=== PATIENT | male | born 1960 | race Caucasian/White ===

== ENCOUNTER 2016-10-13 11:06 | Inpatient (IN) | payer OTHER ==
--- NOTE | 2016-09-25 14:10 | PAT Medication Instructions ---
Service Date Sep 25, 2016. Current Home Medication List Amlodipine/Benazepril (Lotrel 5MG/20MG), 2 TAB PO QAM Amphetamine-Dextroamphetamine 20MG (Adderall 20MG), 20 MG PO QAM Desvenlafaxine Succinate Er (Pristiq), 50 MG PO QAM Glucosamine-Chondroitin (Glucosamine & Chondroitin 500-400 mg), 1 CAP PO QAM Multiple Vitamin (Multi Vitamin), 1 TAB PO QAM [Tumeric], Unknown Dose PO QAM Medication Instructions For Your Scheduled Surgery - Hold the following medications 10 days prior to surgery: Glucosamine-Chondroitin (Glucosamine & Chondroitin 500-400 mg), 1 CAP PO QAM Tumeric Unknown Dose PO QAM - Hold the following medications the morning of surgery: Multiple Vitamin (Multi Vitamin), 1 TAB PO QAM Amphetamine-Dextroamphetamine 20MG (Adderall 20MG), 20 MG PO QAM Amlodipine/Benazepril (Lotrel 5MG/20MG), 2 TAB PO QAM - Take the following medications the morning of surgery with a sip of water: Desvenlafaxine Succinate Er (Pristiq), 50 MG PO QAM If you have any questions please call us at [phone] or [phone] ( Christina) or [phone]
[2016-09-25 14:49] LABS: URINE APPEARANCE CLEAR (CLEAR); URINE BILIRUBIN NEG (NEG); URINE COLOR DK YELLOW; URINE NITRITE NEG (NEG); URINE PH 5.5 (4.5-7.5); URINE SPECIFIC GRAVITY 1.014 (1.000-1.030); UROBILINOGEN NEG (NEG)
[2016-09-25 14:55] LABS: MANUAL MICROSCOPIC REQUIRED? NO; REVIEW REQ? NO
--- NOTE | 2016-09-25 14:59 | DIAGNOSTIC IMAGING REPORT ---
CHEST PREADMISSION(PA/LAT) CLINICAL HISTORY: Preoperative evaluation COMPARISON STUDY: No previous studies for comparison. FINDINGS: Lung volumes are at the lower limits of normal. There is mild elevation/eventration of the right hemidiaphragm. Mild left basilar opacity is suggestive of atelectasis. There is no evidence of pulmonary edema. Cardiac size is normal. Mediastinal contours are normal. IMPRESSION: 1. No acute cardiopulmonary findings. 2. Mild elevation/eventration of the right hemidiaphragm. Electronically signed by: Cecilio Marie M.D. 09/25/2016 2:58 PM Dictated Date/Time: 09/25/2016 2:57 PM
[2016-09-25 15:00] LABS: INR 0.9 (0.9-1.1); PROTHROMBIN TIME (PATIENT) 9.7 SECONDS (9.0-12.0)
[2016-09-25 15:08] LABS: BASO % 0.5 %; BASO ABS # 0.03 K/uL (0-0.2); COMPLETE YES; EOS % 2.8 %; HEMATOCRIT 41.6 % (42-52); IG% 0.3 %; LYMPH ABS # 2.12 K/uL (1.2-3.4); MEAN CORPUSCULAR HEMOGLOBIN 30.4 pg (25-34); MEAN CORPUSCULAR HGB CONC 35.3 g/dl (32-36); MEAN PLATELET VOLUME 10.1 fL (7.4-10.4); MONO % 6.9 %; NEUT % 56.5 %; PLATELET COUNT 285 K/uL (130-400); RED BLOOD COUNT 4.84 M/uL (4.7-6.1); WHITE BLOOD COUNT 6.42 K/uL (4.8-10.8)
[2016-09-25 15:17] LABS: BUN/CREATININE RATIO 14.7 (10-20); CALCIUM 9.2 mg/dl (8.5-10.1); POTASSIUM 3.4 mmol/L (3.5-5.1)
[2016-09-26 07:04] LABS: ESTIMATED AVERAGE GLUCOSE 114 mg/dl; HA1C FLAG Normal (Normal)
--- NOTE | 2016-10-05 10:52 | HISTORY & PHYSICAL EXAMINATION ---
DATE OF ADMISSION: 10/13/2016 PREOPERATIVE HISTORY AND PHYSICAL SUBJECTIVE CHIEF COMPLAINT: Right knee pain. HISTORY OF PRESENT ILLNESS: The patient is a 56-year-old male who presents with right knee pain. He states that the symptoms are chronic and nontraumatic. Pain began with an unknown injury. The pain has been getting progressively worse overtime. He describes it as dull, discomforting and shooting at times 8/10 at its worst, is made worse by going upstairs, going down stairs and squatting. The patient has been treated with cortisone injections, Visco injections, nonsteroidal anti-inflammatories and physical therapy with no relief. The patient would like to pursue a right total knee arthroplasty. PAST MEDICAL HISTORY: Significant for hypertension, sleep apnea, anxiety, and osteoarthritis. PAST SURGICAL HISTORY: He had a left knee meniscectomy. SOCIAL HISTORY: He drinks alcohol occasionally. He denies smoking or tobacco use. He denies IV drug use. He lives in a 2-hiram house. He works as a business support assistant. FAMILY HISTORY: Father had an aortic aneurysm. MEDICATIONS: Amlodipine 5 mg twice a day, benazepril 20 mg twice a day, Pristiq 5 mg daily, Adderall 20 mg, multivitamin, chondroitin glucosamine ALLERGIES: WELLBUTRIN, SULFA DRUGS AND PENICILLIN. REVIEW OF SYSTEMS: He denies fevers, chills, headaches, weight loss, double vision, blurry vision, sore throat, hearing loss, tremors, dizziness, numbness or tingling, tired, thirsty, hot and cold intolerance, abdominal pain, nausea, vomiting, diarrhea, chest pain, swelling into the legs or feet, frequency, going to the bathroom, pain or burning with urination, wheezing, cough, shortness of breath, depression, thoughts to harm himself or harm others, nervousness or anxiousness. He is positive for joint pain, stiffness and swelling of the right knee. OBJECTIVE: GENERAL APPEARANCE: The patient is a 56-year-old male sitting in no acute distress, well dressed, well nourished. He is awake, alert and oriented x3. VITAL SIGNS: He is 6 feet 1 inch, 224 pounds; blood pressure is 126/82. HEENT: Extraocular movements are intact. PERRLA. Mucosa is moist. No septal deviation. NECK: Supple, no lymphadenopathy, no JVD, no thyromegaly. HEART: Regular rate and rhythm with no murmurs or gallops. LUNGS: Clear to auscultation with no wheezing or rhonchi. ABDOMEN: Soft, nontender, nondistended. Normal bowel sounds, no hepatosplenomegaly. EXTREMITIES: Paying particular attention to the patient's right knee. He is able to extend to 0 degrees actively and flex to 100 degrees actively. He has medial joint line tenderness. He has a negative Andrés's, negative anterior and negative posterior drawer. Negative valgus and varus stress test. IMAGING: Four views of the right knee shows [id number] of medial femoral condyle and osteophyte formation of femoral condyle and medial tibial plateau. IMPRESSION: Severe end-stage right knee osteoarthritis. PLAN: The patient is scheduled to have a right total knee arthroplasty. He has failed conservative therapies including cortisone injections, Visco injections, nonsteroidal anti-inflammatories and physical therapy. The patient notes that the knee pain causes a decreased the quality of life and he is unable to perform his activities of daily living. He wishes to proceed with a right total knee arthroplasty. Risks and benefits to surgery were included but not limited to blood clot, nerve damage, blood vessel damage, infection, failure to relieve all symptoms, revision surgeries and anesthesia risks were all discussed and the patient wishes to proceed. Questions were answered to his satisfaction. The patient would like to proceed home with self care after the surgical procedure. ELIZABETH
[2016-10-13] VITALS (7 sets, daily range): BP systolic 104–146; BP diastolic 56–94; PULSE 65–97; TEMP 36.3–36.8; O2SAT 91–96; Ht 185.4 cm; Wt 104.2 kg
[~2016-10-13] VITALS: Ht 185.4 cm; Wt 104.2 kg
[2016-10-13] MEDS: TRANEXAMIC ACID INJ 1,000 MG in SODIUM CHLORIDE 0.9% 100ML 100 ML IV SCH ×2 (06:30→13:37)
[~2016-10-13 11:06] MED LIST: ACETAMINOPHEN 500 MG TAB PO SCH; AMLO5CAP2 PO; AMPH20TA2 PO; BUPIVACAINE 0.5 % 5 MG/1 ML PF 10ML VIAL ONE; CEFAZOLIN 2000 MG/60 ML D5W 60 ML IV SCH; DESV50TA PO; DEXAMETHASONE 4 MG TAB PO SCH; FAMOTIDINE 20 MG TAB PO SCH; GABAPENTIN 300 MG CAP PO SCH; GLUC1CAP33 PO; LACTATED RINGER'S 1000ML 1,000 ML IV SCH; LACTATED RINGER'S 1000ML IV SCH; LACTATED RINGER'S 500 ML IV SCH; METOCLOPRAMIDE HCL 10 MG TAB PO SCH; MULT-1027 PO; ROPIVACAINE 5MG/ML 30 ML 150 MG, BUPIVACAINE/EPINEPHR 0.5% MPF 30 ML, KETOROLAC TROMETH... INFIL SCH; TRAMADOL HCL 50 MG TAB PO SCH; TUMERIC PO; VANCOMYCIN INJ 1,500 MG in SODIUM CHLORIDE 0.9% 500ML 500 ML IV SCH
[2016-10-13] MEDS ORDERED: ONDANSETRON INJ 2 MG/ML 2 ML VIAL ONE (11:49)
[2016-10-13] MEDS ORDERED: MIDAZOLAM HCL 1 MG/ML 2ML VIAL ONE (11:49)
[2016-10-13] MEDS ORDERED: PROPOFOL IV EMULSION 10 MG/ML 20 ML VIAL IV ONE ×2 (11:49→15:11)
[2016-10-13] MEDS ORDERED: FENTANYL CITRATE INJ 50 MCG/1 ML 2 ML VIAL ONE (11:49)
--- NOTE | 2016-10-13 12:11 | History & Physical Bridge Note ---
H&P Re-Evaluation Bridge Note: I have examined the patient, reviewed the History & Physical and in the interval since the performance of the History & Physical I have noted the following changes of clinical significance: No changes noted
[2016-10-13] MEDS ORDERED: ONDANSETRON INJ 2 MG/ML 2 ML VIAL IV PRN (12:30)
[2016-10-13] MEDS ORDERED: ATROPINE SULFATE 0.1 MG/ML 5ML SYR IV PRN (12:30)
[2016-10-13] MEDS ORDERED: FENTANYL CITRATE INJ 50 MCG/1 ML 2 ML VIAL IV PRN (12:30)
[2016-10-13] MEDS ORDERED: EpHEDrine SULFATE INJ 50 MG/ML AMP IV PRN (12:30)
[2016-10-13] MEDS ORDERED: ORTHO JOINT ANESTHETIC ONE (13:16)
[2016-10-13] MEDS ORDERED: POVIDONE-IODINE OP SOLN 30 ML BTL ONE (13:17)
[2016-10-13] MEDS ORDERED: BACITRACIN 50000 UNIT VIAL ONE (13:17)
[2016-10-13] MEDS ORDERED: EpHEDrine SULFATE 50MG/5ML SYR ONE (15:20)
--- NOTE | 2016-10-13 15:24 | [facility] Post Operative Brief Note ---
Immediate Operative Summary Operative Date Oct 13, 2016. Pre-Operative Diagnosis Severe end-stage osteoarthritis, right knee Post-Operative Diagnosis Severe end-stage osteoarthritis, right knee Procedure(s) Performed Right Total Knee Arthroplasty Surgeon Dr. Isaiah Beth Drafter Commercial Surgeon(s) Josue Portillo PA-C Estimated Blood Loss 20 Findings above Specimens Specimen A. Right knee bone and tissue Drains 2 hemovac Anesthesia spinal Complication(s) None Disposition Recovery Room / PACU
--- NOTE | 2016-10-13 15:52 | OPERATIVE REPORT ---
DATE OF OPERATION: 10/13/2016 PREOPERATIVE DIAGNOSIS: Right knee degenerative joint disease. POSTOPERATIVE DIAGNOSIS: Same. PROCEDURE: Right total knee arthroplasty. SURGEON: Dr. Beth. BRAKE DRUM LATHE OPERATOR: Josue Portillo PA-C who was necessary for assistance of procedure with positioning, prepping, draping, retraction and closure. ANESTHESIA: Spinal with adductor canal block. SPECIMEN: Bone and tissue. DRAINS: Two Hemovac. ESTIMATED BLOOD LOSS: 20 mL. COMPLICATIONS: None. IMPLANTS: Trejo \T\ Nephew Journey version 2 femur 8, tibia 6, poly 9, patella 41. INDICATIONS: The patient is a 56-year-old male with longstanding degenerative joint disease of the right knee. He has failed conservative measures including injection, anti-inflammatories and rehabilitation. Failing conservative measures, he wished to proceed with right total knee arthroplasty. Risks, benefits and alternatives to surgery including but not limited to infection, DVT, pain, stiffness, need for urgent surgery, failure to relieve all symptoms, damage to blood vessels, damage to nerves, risks of anesthesia were discussed with patient and he wished to necessary and he wished to proceed. OPERATION AND FINDINGS: PROCEDURE: The patient was identified, laterality was confirmed and marked. He received a preoperative antibiotic as well as a spinal anesthetic and an adductor canal block. A well-padded tourniquet was placed on the leg and limb was prepped and draped in usual sterile manner with ChloraPrep. Limb was exsanguinated and tourniquet was inflated. I made a longitudinal incision anterior aspect of the knee, sharply incising through the skin utilizing Bovie electrocautery to achieve hemostasis. I made a medial parapatellar arthrotomy, mobilized the patella laterally and used the Aquamantys to cauterize bleeders. I excised the anterior horns of the medial and lateral meniscus as well as the inferior patellar fat pad and then pinned in place the patient matched distal femoral cutting guide. I made my distal femoral resection, made my anterior, posterior and chamfer cuts. I then placed a patient matched tibial guide into place, made my tibial resection and resected the remaining portions of the menisci and cruciates. I then sized the tibia. We had preoperatively templated for a size 8 but we actually had the best fit with a size 6. We positioned the size [address] and checked alignment with the alignment ron and then pinned in place and cut for the post. I then used a lamina special trackwork blacksmith, removed posterior osteophytes off the femur and then placed the trial femoral component in place, reamed and cut for the trochlear component. I then placed a 9 mm poly. We had good range of motion, good soft tissue balancing with a 9 mm poly. I then prepared the patella with a free hand cut with a sagittal saw and sized and drilled for a size 41 patella. We had good tracking of the patella. No lateral release was needed. All trial components were removed. The wound was thoroughly irrigated. Deep tissues were anesthetized with an Orthomix solution, then with Simplex HV with gent cement. I cemented the definitive components. This was Trejo \T\ Nephew Journey version 2 femur 8, tibia 6, poly 9, patella 41 oval. Deep drain was placed after a Betadine soak was performed. Arthrotomy was closed with interrupted #1 Vicryl sutures, subcutaneous tissue with interrupted 2-0 Vicryl suture and skin with jose. Sterile dressing was applied. All needle and sponge counts were correct at the end of the procedure. The patient was transferred to the PACU in stable condition without apparent complication. I attest to the content of the Intraoperative Record and any orders documented therein. Any exceptio ns are noted below.
[2016-10-13] MEDS ORDERED: ALUMINUM/MAGNESIUM/SIMETH (MAALOX MAX) 30 ML UDC PO PRN (16:15)
[2016-10-13] MEDS ORDERED: ZOLPIDEM TARTRATE 5 MG TAB PO PRN (16:15)
[2016-10-13] MEDS ORDERED: BISACODYL 10 MG SUPP PR PRN (16:15)
[2016-10-13] MEDS ORDERED: MAGNESIUM HYDROXIDE SUSP 30 ML UDC PO PRN (16:15)
[2016-10-13] MEDS ORDERED: DiphenhydrAMINE HCL 50 MG/ML VIAL IV PRN (16:15)
[2016-10-13] MEDS ORDERED: MoRPHine SULFATE 2 MG/ML CARP IV PRN (16:15)
--- NOTE | 2016-10-13 16:43 | Anesthesiology Progress Note ---
Anesthesia Post Op Note Date & Time Oct 13, 2016 at 16:42 Vital Signs Pain Intensity: 0 Vital Signs Past 12 Hours Date Time Temp Pulse Resp B/P Pulse Ox O2 Delivery O2 Flow Rate FiO2 10/13/16 16:30 36.7 78 16 114/67 97 Nasal Cannula 3 10/13/16 16:20 65 16 111/74 97 Mask 5 10/13/16 16:10 79 16 114/74 97 Mask 10 10/13/16 16:08 36.8 70 16 107/67 97 Mask 10 10/13/16 11:34 36.8 65 20 146/94 96 Room Air Notes Mental Status: alert / awake / arousable, participated in evaluation Pt Amnestic to Procedure: Yes Nausea / Vomiting: adequately controlled Pain: adequately controlled Airway Patency, RR, SpO2: stable & adequate BP & HR: stable & adequate Hydration State: stable & adequate Neuraxial Anesthesia: was administered, sensory block is resolving Anesthetic Complications: no major complications apparent
--- NOTE | 2016-10-13 16:46 | DIAGNOSTIC IMAGING REPORT ---
RIGHT KNEE 1 OR 2 VIEWS ROUTINE CLINICAL HISTORY: Right knee arthroplasty. Postoperative evaluation. COMPARISON: None FINDINGS: Alignment of the total right knee arthroplasty is anatomic. There is no fracture or unexpected radiopaque foreign body. Drains and skin jose are present. IMPRESSION: Expected findings following total right knee arthroplasty. Electronically signed by: Cecilio Marie M.D. 10/13/2016 4:44 PM Dictated Date/Time: 10/13/2016 4:43 PM
[2016-10-13] MEDS: D5W AND 1/2NSS + 20MEQ KCL 1,000 ML IV SCH (19:09)
[2016-10-13] MEDS: OXYCODONE HCL IR 5 MG TAB (IMMEDIATE RELEASE) PO PRN (19:10)
[2016-10-13] MEDS ORDERED: MoRPHine SULFATE 4 MG/ML 1 ML CARP\\VIAL IV PRN (20:30)
[2016-10-13] MEDS ORDERED: MoRPHine SULFATE 10 MG/ML CARP/VIAL IV PRN (20:30)
[2016-10-13] MEDS: ASPIRIN 81 MG ECTAB PO SCH (21:19)
[2016-10-13] MEDS: SENNA 8.6 MG TAB PO SCH (21:20)
[2016-10-13] MEDS: DOCUSATE SODIUM 100 MG CAP PO SCH (21:20)
[2016-10-13] MEDS: OXYCODONE HCL 10 MG TABCR (OXYCONTIN) PO SCH (21:21)
[2016-10-13] MEDS: ACETAMINOPHEN 500 MG TAB PO SCH (21:22)
[2016-10-14] VITALS (8 sets, daily range): BP systolic 102–134; BP diastolic 62–84; PULSE 61–90; TEMP 35.5–36.7; O2SAT 90–98
[2016-10-14] MEDS ORDERED: VANCOMYCIN INJ 1,500 MG in SODIUM CHLORIDE 0.9% 500ML 500 ML IV SCH ×2
[2016-10-14 05:41] LABS: HEMATOCRIT 34.4 % (42-52); MEAN CELL VOLUME 86.4 fL (80-100); MEAN CORPUSCULAR HEMOGLOBIN 30.7 pg (25-34); MEAN CORPUSCULAR HGB CONC 35.5 g/dl (32-36); MEAN PLATELET VOLUME 10.2 fL (7.4-10.4); PLATELET COUNT 257 K/uL (130-400); RED BLOOD COUNT 3.98 M/uL (4.7-6.1); WHITE BLOOD COUNT 13.99 K/uL (4.8-10.8)
[2016-10-14] MEDS: D5W AND 1/2NSS + 20MEQ KCL 1,000 ML IV SCH ×2 (05:46→15:41)
[2016-10-14] MEDS: ACETAMINOPHEN 500 MG TAB PO SCH ×3 (05:47→20:56)
[2016-10-14 06:05] LABS: BUN/CREATININE RATIO 11.4 (10-20); CALCIUM 8.1 mg/dl (8.5-10.1); POTASSIUM 3.4 mmol/L (3.5-5.1)
--- NOTE | 2016-10-14 06:07 | Orthopedic Progress Note ---
Orthopedic Progress Note Date of Service Oct 14, 2016. Subjective Post OP Day: 1 Reports: feeling well, pain controlled w PO medications, Denies: SOB, calf pain , chest pain, complaints, light headedness, nausea / vomiting Objective calves soft nontender, N/V intact, capillary refill less than 2 sec., dressing C /D/I, A&O x3, toes mobile, hemovac drainage (690cc/ 8 hours) Date Time Temp Pulse Resp B/P Pulse Ox O2 Delivery O2 Flow Rate FiO2 10/14/16 03:30 36.6 69 16 102/62 90 Room Air 10/14/16 00:00 Room Air 10/13/16 22:54 36.5 76 15 104/56 91 Room Air 10/13/16 20:56 36.3 97 18 133/88 95 Room Air 10/13/16 18:43 36.4 85 18 127/86 94 Nasal Cannula 2.0 10/13/16 18:01 36.6 90 16 138/87 92 Nasal Cannula 2.0 10/13/16 17:20 36.6 76 16 130/85 92 Nasal Cannula 2.0 10/13/16 16:50 93 Nasal Cannula 2.0 10/13/16 16:50 94 Nasal Cannula 2.0 10/13/16 16:44 36.7 76 16 118/75 95 Nasal Cannula 3 10/13/16 16:30 36.7 78 16 114/67 97 Nasal Cannula 3 10/13/16 16:20 65 16 111/74 97 Mask 5 10/13/16 16:10 79 16 114/74 97 Mask 10 10/13/16 16:08 36.8 70 16 107/67 97 Mask 10 10/13/16 11:34 36.8 65 20 146/94 96 Room Air Laboratory Results 24 Hours: Test 10/14/16 05:00 Hematocrit 34.4 % Hemoglobin 12.2 g/dL Assessment & Plan Assessment: POD #1 s/p Right TKA -PT/OT -dvt proph DARCI/ASA/SCD -plan for OPPT when stable @ [facility] in [place]. hypertension, sleep apnea, anxiety, Discharge Planning Discharge Planning: home with oppt DVT Prophylaxis: TEDs, SCDs, ASA Therapy: Physical Therapy
--- NOTE | 2016-10-14 06:11 | Discharge Instructions ---
Discharge Instructions Admission Reason for Admission: Right Knee Djd Discharge Discharge Diagnosis / Problem: Right TKA Discharge Goals Goal(s): Decrease discomfort, Improve function, Increase independence Activity Recommendations Activity Limitations: as noted below Weightbearing Status: Right weightbearing (as tolerated) . Instructions / Follow-Up Instructions / Follow-Up ACTIVITY RECOMMENDATIONS: SELF CARE INSTRUCTIONS AFTER TOTAL KNEE REPLACEMENT A. You may need to continue a physical therapy program after discharge from the hospital. There are several options available to you. Your doctor will assist you in selecting the best one for you. 1. An out-patient facility 2 to 3 times a week for therapy or home therapy. 2. Continue working on all exercises taught to you in the hospital. Your goals should be to increase bending of your knee to 90 degrees and beyond and to fully straighten your knee. B. You may progress at your own pace from walking with a walker or crutches to a cane; then to no assistive devices. C. Make walking a part of your daily routine. Be up as much as comfortable with rest periods throughout the day. Rest with leg elevation is very important. Use the ice wrap frequently for the first 3-4 weeks. D. There are no restrictions on activities. You may ride in a car, shop, participate in dry kiln operator and all social activities. E. Wear the long elastic stockings (DARCI hose) 20 hours a day for 2 weeks after surgery. They can be removed several times a day for laundering and for a bath. F. You may shower, no tub baths until cleared by your doctor. SPECIAL CARE INSTRUCTIONS: VERY IMPORTANT TO READ AND REVIEW A. There are a few signs you need to watch for after you are home. Call [facility] if you notice any of the followin. Increased severe knee pain. Some pain is expected especially when you exercise. 2. Increased swelling in your leg or knee; pain or swelling of the calf muscle in either lower leg. 3. Any fluid drainage from the incision. 4. Shortness of breath or chest pain. B. Please call [facility] at if you have any concerns or questions about your operation or recovery. The doctor or his nurse will return your call promptly. C. You must take antibiotics before dental work, bladder, bowel or other surgery. Your doctor will provide you with a permanent care to carry describing this precaution. IMPORTANT: * REMEMBER TO TAKE ASPIRIN, 81 MG, TWICE DAILY FOR 4 WEEKS UNLESS OTHERWISE DIRECTED. THIS IS YOUR BLOOD THINNER. * HIGH RISK PATIENTS MAY BE PRESCRIBED A STRONGER BLOOD THINNER. THIS WILL BE PROVIDED AT DISCHARGE. * CALL IF INCREASED PAIN, REDNESS, DRAINAGE OR FEVER GREATER THAT 101. * WEAR DARCI HOSE 20 HOURS PER DAY FOR 2 WEEKS. * YOU MAY HAVE A LARGE BAND-AID LIKE DRESSING (SILVERON). THIS WILL REMAIN ON YOUR INCISION FOR 7 DAYS, THEN CAN BE REMOVED. IF INCISION IS LEAKING THROUGH DRESSING, CALL THE OFFICE . FOLLOW UP VISIT: If appointment is not already scheduled: Please call [facility] to make a follow-up appointment for 2 weeks after your surgery at . Current Hospital Diet Patient's current hospital diet: Regular Diet Discharge Diet Recommended Diet: Regular Diet Procedures Procedures Performed: Right Total Knee Arthroplasty Pending Studies Studies pending at discharge: no Laboratory Results Hemoglobin A1c Test 09/25/16 14:17 Range/Units Estimated Average Glucose 114 mg/dl Hemoglobin A1c 5.6 4.5-5.6 % Medical Emergencies . Who to Call and When: Medical Emergencies: If at any time you feel your situation is an emergency, please call 911 immediately. . Non-Emergent Contact Non-Emergency issues call your: Primary Care Provider, Surgeon . "Provider Documentation" section prepared by Terry Gee. VTE Core Measure Inpt VTE Proph given/why not?: Other Anticoagulation (ASA 81mg po bid x 1 month), T.E.D. Stockings, SCD's [place] Drug Monitoring Program Search Results: patient reviewed within database, no issues identified
[2016-10-14] MEDS ORDERED: RXC5 PO (06:14)
[2016-10-14] MEDS ORDERED: OXYSR10 PO (06:14)
[2016-10-14] MEDS ORDERED: ACET-1138 PO (06:14)
[2016-10-14] MEDS ORDERED: ASPEC81 PO (06:14)
[2016-10-14] MEDS ORDERED: ONDA8TAB6 PO (06:14)
[2016-10-14] MEDS ORDERED: CLC100 PO (06:14)
[2016-10-14] MEDS: ONDANSETRON INJ 2 MG/ML 2 ML VIAL IV PRN ×4 (08:51→19:13)
[2016-10-14] MEDS: OXYCODONE HCL IR 5 MG TAB (IMMEDIATE RELEASE) PO PRN ×2 (08:53→10:48)
[2016-10-14] MEDS: AMPHETAMINE ASP/SULF/DEXTRAMPH 20 MG TAB PO SCH ×3 (08:54→09:16)
[2016-10-14] MEDS: PANTOprazole SOD 40 MG TAB PO SCH ×2 (08:54→11:03)
[2016-10-14] MEDS: ASPIRIN 81 MG ECTAB PO SCH ×2 (08:54→11:01)
[2016-10-14] MEDS: OXYCODONE HCL 10 MG TABCR (OXYCONTIN) PO SCH ×4 (08:54→21:00)
[2016-10-14] MEDS: MULTIVITAMIN TAB PO SCH (08:54)
[2016-10-14] MEDS: BENAZEPRIL HCL 10 MG TAB PO SCH ×3 (08:56→11:01)
[2016-10-14] MEDS: DOCUSATE SODIUM 100 MG CAP PO SCH ×2 (08:56→20:56)
[2016-10-14] MEDS: FERROUS GLUCONATE 324 MG TAB PO SCH ×3 (08:56→17:45)
[2016-10-14] MEDS: AMLODIPINE BESYLATE 5 MG TAB PO SCH ×3 (08:57→11:02)
[2016-10-14] MEDS: DESVENLAFAXINE SUCCINATE 50 MG PO SCH (08:57)
[2016-10-14] MEDS ORDERED: DESVENLAFAXINE SUCCINATE 50 MG PO SCH (09:00)
[2016-10-14] MEDS: SENNA 8.6 MG TAB PO SCH (20:56)
[2016-10-15] MEDS: ACETAMINOPHEN 500 MG TAB PO SCH (06:03)
--- NOTE | 2016-10-15 06:11 | Orthopedic Progress Note ---
Orthopedic Progress Note Date of Service Oct 15, 2016. Subjective Post OP Day: 2 Reports: feeling well, nausea / vomiting (has improved since yesterday), pain controlled w PO medications, Denies: SOB, calf pain, chest pain, complaints, light headedness Objective calves soft nontender, N/V intact, capillary refill less than 2 sec., dressing C /D/I, A&O x3, toes mobile Date Time Temp Pulse Resp B/P Pulse Ox O2 Delivery O2 Flow Rate FiO2 10/14/16 23:05 Room Air 10/14/16 22:50 36.6 61 16 107/62 92 Room Air 10/14/16 16:00 94 Room Air 10/14/16 15:36 36.7 90 18 134/76 94 Room Air 10/14/16 11:50 36.5 72 18 128/76 96 Room Air 10/14/16 10:54 83 98 10/14/16 08:09 95 Room Air 10/14/16 07:56 36.6 86 18 122/80 95 Room Air Assessment & Plan Assessment: POD #2 s/p Right TKA -PT/OT -dvt proph DARCI/ASA/SCD -plan for OPPT when stable @ [facility] in [place]. hypertension, sleep apnea, anxiety, Discharge Planning Discharge Planning: home with oppt DVT Prophylaxis: TEDs, SCDs, ASA Therapy: Physical Therapy
[2016-10-15 06:37] VITALS: BP 145/72; PULSE 70; TEMP 36.8; O2SAT 93
[2016-10-15] MEDS: DOCUSATE SODIUM 100 MG CAP PO SCH (07:22)
[2016-10-15] MEDS: FERROUS GLUCONATE 324 MG TAB PO SCH (07:22)
[2016-10-15] MEDS: AMPHETAMINE ASP/SULF/DEXTRAMPH 20 MG TAB PO SCH (07:22)
[2016-10-15] MEDS: MULTIVITAMIN TAB PO SCH (07:22)
[2016-10-15] MEDS: ASPIRIN 81 MG ECTAB PO SCH (07:22)
[2016-10-15] MEDS: PANTOprazole SOD 40 MG TAB PO SCH (07:23)
[2016-10-15] MEDS: DESVENLAFAXINE SUCCINATE 50 MG PO SCH (07:23)
[2016-10-15 08:57] VITALS: BP 112/72; PULSE 74; O2SAT 97
[2016-10-15] MEDS: AMLODIPINE BESYLATE 5 MG TAB PO SCH (09:06)
[2016-10-15] MEDS: OXYCODONE HCL 10 MG TABCR (OXYCONTIN) PO SCH (09:07)
[2016-10-15] MEDS: BENAZEPRIL HCL 10 MG TAB PO SCH (09:07)
[2016-10-15 09:09] VITALS: BP 120/74; PULSE 75
[2016-10-15 09:41] VITALS: BP 120/74; PULSE 75; TEMP 36.8; O2SAT 97
--- NOTE | 2016-10-18 14:20 | DISCHARGE SUMMARY ---
ADMISSION DIAGNOSIS: Right knee osteoarthritis. DISCHARGE DIAGNOSIS: Status post right TKA. CONSULTS: None. PROCEDURES: On 10/13/2016 the patient had a right TKA performed. HISTORY OF PRESENT ILLNESS: Patient is a 56-year-old male who presents with right knee pain. He states that the symptoms are chronic and nontraumatic. The pain began with an unknown injury. The pain has been getting progressively worse over time. He describes it as dull, discomforting, and shooting at times, 8/10 at its worst. It is worse going up stairs, going down stairs, and squatting. The patient has been treated with cortisone injections, visco injections, nonsteroidal antiinflammatories and physical therapy with no relief. He would like to proceed with a right TKA. HOSPITAL COURSE: Postop day 1 the patient was feeling well. Pain was controlled with p.o. medications. He denied shortness of breath, chest pain, lightheadedness, dizziness, nausea or vomiting. His Hemovac drainage was 690 cc per 8 hours. The patient's plan for discharge when stable was to go home with self-care. Postop day 2 the patient was feeling well. Pain was controlled with p.o. medications. He denied shortness of breath, chest pain, lightheadedness or dizziness. DISCHARGE CONDITION: Stable. DISPOSITION: Home with self-care. MEDICATIONS: Acetaminophen 1000 mg by mouth every 8 hours, aspirin 81 mg by mouth twice daily for 30 days, docusate 100 mg by mouth twice a day for 10 days, Zofran 8 mg by mouth every 8 hours as needed for nausea, OxyContin 10 mg by mouth every 12 hours, oxycodone 5-10 mg by mouth every 4 hours as needed for pain, Lotrel 5 mg/20 mg two tablets by mouth daily in the morning, Adderall 20 mg by mouth daily in the morning, Pristiq 50 mg by mouth daily in the morning, multivitamin one tablet daily in the morning. INSTRUCTIONS: The patient is allowed to be right lower extremity weightbearing as tolerated. He is allowed to be on a regular diet. He is to start physical therapy at an outpatient facility 2-3 times a week. He is to wear long elastic stockings 20 hours a day for two weeks after surgery. No showering no tubs, no baths until cleared by doctor. He is to take aspirin 81 mg twice a day for 4 weeks. He is to call [facility] if he notices any increasing knee pain, swelling, drainage from the incision site, shortness of breath or chest pain. He is to followup with Dr. Beth or his physician call center assistant in 2 weeks after the surgery. ELIZABETH
== END 2016-10-15 11:18 | disposition home or self-care (01) | DRG 470 ==
LOC: ENRESERVTM → ENRESERVDT → C.ACU 11:06 → C.3E 16:05
PROVIDERS: ADMIT Orthopaedic Surgery; ATTEND Orthopaedic Surgery
PROC: 0SRC0J9 Replacement of Right Knee Joint with Synthetic Substitute, Cemented, Open Approach (ICD-10-PCS; principal; 2016-10-13 13:45)
DX: M17.11 Unilateral primary osteoarthritis, right knee (principal); I10 Essential (primary) hypertension; N40.0 Benign prostatic hyperplasia without lower urinary tract symptoms; F41.9 Anxiety disorder, unspecified; F32.9 Major depressive disorder, single episode, unspecified; F90.0 Attention-deficit hyperactivity disorder, predominantly inattentive type; G47.30 Sleep apnea, unspecified; E66.9 Obesity, unspecified; Z68.30 Body mass index [BMI] 30.0-30.9, adult; Z99.89 Dependence on other enabling machines and devices; Z79.899 Other long term (current) drug therapy

== ENCOUNTER → 2016-10-19 | Outpatient (CLI) | payer OTHER ==
[~2016-10-19] MED LIST changes: +ACET-1138 PO; -ACETAMINOPHEN 500 MG TAB PO SCH; +ASPEC81 PO; -BUPIVACAINE 0.5 % 5 MG/1 ML PF 10ML VIAL ONE; -CEFAZOLIN 2000 MG/60 ML D5W 60 ML IV SCH; +CLC100 PO; +DAPT500I IV; -DEXAMETHASONE 4 MG TAB PO SCH; -FAMOTIDINE 20 MG TAB PO SCH; -GABAPENTIN 300 MG CAP PO SCH; -GLUC1CAP33 PO; -LACTATED RINGER'S 1000ML 1,000 ML IV SCH; -LACTATED RINGER'S 1000ML IV SCH; -LACTATED RINGER'S 500 ML IV SCH; -METOCLOPRAMIDE HCL 10 MG TAB PO SCH; +MRPSR15 PO; +ONDA8TAB6 PO; +OXYSR10 PO; -ROPIVACAINE 5MG/ML 30 ML 150 MG, BUPIVACAINE/EPINEPHR 0.5% MPF 30 ML, KETOROLAC TROMETH... INFIL SCH; +RXC5 PO; -TRAMADOL HCL 50 MG TAB PO SCH; -TUMERIC PO; -VANCOMYCIN INJ 1,500 MG in SODIUM CHLORIDE 0.9% 500ML 500 ML IV SCH
--- NOTE | 2016-10-19 15:56 | DIAGNOSTIC IMAGING REPORT ---
CHEST 2 VIEWS ROUTINE CLINICAL HISTORY: Fever. Recent surgery. COMPARISON STUDY: 09/25/2016 FINDINGS: The cardiac and mediastinal contours remain stable. There is no focal pulmonary consolidation. There is no failure. There are no pleural effusions.[ IMPRESSION: No active disease in the chest. Electronically signed by: Federico Car M.D. 10/19/2016 3:54 PM Dictated Date/Time: 10/19/2016 3:54 PM
--- NOTE | 2016-10-19 16:14 | DIAGNOSTIC IMAGING REPORT ---
RIGHT LOWER EXTREMITY VENOUS DOPPLER CLINICAL HISTORY: Right leg pain and swelling. Total knee arthroplasty. COMPARISON STUDY: No previous studies for comparison. TECHNIQUE: Sonography of the deep venous system of the right lower extremity was performed. Compression and augmentation were evaluated. FINDINGS: The right common femoral, superficial femoral and popliteal veins were compressible. Augmentation was normal. Flow was shown within the deep calf vessels. IMPRESSION: No evidence of deep venous thrombus within the right lower extremity. Electronically signed by: Cecilio Marie M.D. 10/19/2016 4:13 PM Dictated Date/Time: 10/19/2016 4:12 PM
[2016-10-19 16:41] LABS: HEMATOCRIT 31.9 % (42-52); MEAN CELL VOLUME 85.1 fL (80-100); MEAN CORPUSCULAR HEMOGLOBIN 30.4 pg (25-34); MEAN CORPUSCULAR HGB CONC 35.7 g/dl (32-36); MEAN PLATELET VOLUME 9.8 fL (7.4-10.4); PLATELET COUNT 366 K/uL (130-400); RED BLOOD COUNT 3.75 M/uL (4.7-6.1); WHITE BLOOD COUNT 11.01 K/uL (4.8-10.8)
== END | disposition home or self-care (01) ==
LOC: C.ULTR 15:18
PROVIDERS: ATTEND Orthopaedic Surgery
DX: M17.11 Unilateral primary osteoarthritis, right knee (principal)

== ENCOUNTER 2016-10-24 13:09 | Inpatient (IN) | payer OTHER ==
[~2016-10-24] VITALS: Ht 185.4 cm; Wt 102.0 kg
[~2016-10-24 13:09] MED LIST changes: -DAPT500I IV; -MRPSR15 PO
--- NOTE | 2016-10-24 13:34 | HISTORY & PHYSICAL EXAMINATION ---
DATE OF ADMISSION: 10/24/2016 CHIEF COMPLAINT: Right knee pain, swelling, fever. HISTORY OF PRESENT ILLNESS: The patient is a 56-year-old male who underwent a right total knee arthroplasty on 10/13/2016. Starting the following week after surgery, he had increasing pain and swelling and some low grade fevers. Examination of the knee wound at that time was relatively benign. At that time Doppler was obtained which was normal. Chest x-ray was normal. White blood cell count was only mildly elevated at 11. He was placed on doxycycline. He continued to have pain and swelling in the knee. He continues to now have temperatures. He was reevaluated again today. He has some increased erythema along the incision line consistent with cellulitis. Aspiration was obtained which demonstrated serosanguineous fluid. He has an ALLERGY TO BOTH PENICILLIN WELL SULFA. Given his lack of response to the p.o. antibiotics, elected to bring him in for IV antibiotics for treatment of cellulitis. PAST MEDICAL HISTORY: Hypertension, sleep apnea, anxiety, osteoarthritis. PAST SURGICAL HISTORY: Left knee meniscectomy and right total knee arthroplasty. SOCIAL HISTORY: Denies smoking, alcohol or drug use. FAMILY HISTORY: Father had an aortic aneurysm. MEDICATIONS: Amlodipine, benazepril, Pristiq, Adderall, glucosamine. ALLERGIES: WELLBUTRIN, SULFA, PENICILLIN. REVIEW OF SYSTEMS: Positive for fevers. PHYSICAL EXAMINATION: GENERAL APPEARANCE: Alert and oriented x3 in no acute distress. Mood and affect are normal. HEENT: Atraumatic. CHEST: Clear. CARDIOVASCULAR: Regular rhythm. ABDOMEN: Soft and nontender. EXTREMITIES: Examination of the right lower extremity. All anterior incision closed with jose. No drainage. There is some surrounding erythema along the incision line. Moderate effusion. Range of motion 0-50 degrees of flexion. ASSESSMENT: Right knee status post total knee arthroplasty and cellulitis. PLAN: Given his persistent complaints of fevers and lack of response to the p.o. antibiotics I aspirated the knee. This returned back serosanguineous type fluid. He does have some surrounding cellulitis in the incision site. Ideally, I would have liked to put him on some Bactrim, but HE IS ALLERGIC TO SULFA MEDICATIONS. I am going to bring him into the hospital for treatment of IV antibiotics. We will wait for the analysis of the fluid that was aspirated to ensure that there is no infection in that. I am also going to consult infectious disease for recommendations for what would be a good p.o. antibiotics to send him home on given his failure to doxycycline and his ALLERGIES TO PENICILLIN AND SULFA. I am going to keep him n.p.o. this afternoon in case the Gram stain comes back positive, but assuming this does not come back positive, I will allow him to eat later this evening.
[2016-10-24 13:52] VITALS: BP 155/80; PULSE 88; TEMP 37.1; O2SAT 93; Ht 185.4 cm; Wt 102.0 kg
[2016-10-24] MEDS ORDERED: ENALAPRIL MALEATE 10 MG TAB PO SCH (14:00)
[2016-10-24] MEDS ORDERED: AMLODIPINE BESYLATE 5 MG TAB PO SCH (14:00)
[2016-10-24] MEDS ORDERED: ONDANSETRON INJ 2 MG/ML 2 ML VIAL IV PRN (14:15)
[2016-10-24 14:55] LABS: HEMATOCRIT 30.3 % (42-52); MEAN CELL VOLUME 86.1 fL (80-100); MEAN CORPUSCULAR HEMOGLOBIN 30.4 pg (25-34); MEAN CORPUSCULAR HGB CONC 35.3 g/dl (32-36); MEAN PLATELET VOLUME 8.3 fL (7.4-10.4); PLATELET COUNT 505 K/uL (130-400); RED BLOOD COUNT 3.52 M/uL (4.7-6.1); WHITE BLOOD COUNT 9.43 K/uL (4.8-10.8)
--- NOTE | 2016-10-24 15:11 | Progress Note ---
Progress Note Date of Service Oct 24, 2016. Progress Note ID Consult Dictated #[id number] A/P: 1. Infected right knee -continue vanco, add imipenem, await aspirate fluid -Will likely need course IV abx -Will follow, thank you
[2016-10-24 15:16] VITALS: BP 144/81; PULSE 88; TEMP 37.2; O2SAT 93
[2016-10-24 15:22] LABS: C-REACTIVE PROTEIN 13.3 mg/dl (0-0.29)
--- NOTE | 2016-10-24 15:54 | INFECT. DISEASE CONSULTATION ---
DATE OF CONSULTATION: 10/24/2016 DATE OF CONSULTATION: 10/24/2016. REQUESTING PHYSICIAN: Dr. Beth. HISTORY OF PRESENT ILLNESS: This is a 56-year-old gentleman who underwent a right knee replacement on 10/13/2016. He states that he was feeling well up until time of discharge. He noticed immediately after discharge he was having fevers and chills at home with a T-max of 101.5. He did follow and had a workup for pneumonia and DVT which both were unremarkable. He continued to have pain in the knee and fevers and chills at home. He was seen by his orthopedic surgeon last week and placed empirically on doxycycline. He has not noticed any improvement and in fact had worsening redness and swelling over the weekend. He was again evaluated for this and was sent to the hospital for admission and IV antibiotics. He has been placed on vancomycin. He did undergo an aspiration and he states 80 mL of fluid were removed. He describes this as bloody. He has had continued fevers and chills at home. He is able to ambulate but has some difficulty secondary to pain. He did notice increased swelling over the weekend. He denies any drainage or dehiscence of the wound. He denies any chest pain, cough, shortness of breath, nausea, vomiting, diarrhea or abdominal pain. He was tolerating doxycycline well. All remaining review of systems are reviewed and are negative except or as noted above. An aspiration was done, results are pending and if there is suggestion of deep infection he may in fact undergo operation later this evening. PAST MEDICAL HISTORY: Significant for hypertension, sleep apnea, anxiety, and arthritis. PAST SURGICAL HISTORY: Significant for left knee meniscus repair and right total knee replacement in late September. SOCIAL HISTORY: Negative for tobacco, alcohol use or drug use. He is . He lives with his and 2 children. He denies any sick contacts. His is present during my exam. FAMILY HISTORY: Noncontributory. ALLERGIES: INCLUDE WELLBUTRIN, SULFA AND PENICILLIN. CURRENT MEDICATIONS: Include Zofran, Pristiq, Roxicodone, Norvasc, Vasotec, oxycodone, and vancomycin. PHYSICAL EXAMINATION: VITAL SIGNS: He is afebrile, pulse 88, respiratory rate is 16, blood pressure is 155/80, oxygen saturation is 93% on room air. GENERAL: He is awake, alert and oriented x3. She is in no acute distress. HEAD, EYES, EARS, NOSE, AND THROAT: Mucous membranes are moist. Extraocular muscles are intact. HEART: Regular. There is no murmur. LUNGS: Clear bilaterally. ABDOMEN: Soft, nontender, nondistended. EXTREMITIES: There is no lower extremity edema. Examination of knee reveals significant erythema, warmth and swelling. There is no tenderness to light palpation. [place] are intact. There is no bleeding or purulent drainage. LABORATORY STUDIES: CBC today reveals a white blood cell count of 9.4, hemoglobin 10.7, platelets are 505. Sed rate is pending. CRP is pending. A joint aspiration is pending. Cultures are pending. Chest x-ray was most recently done on 10/19/2016 and was unremarkable for any acute abnormality. Lower extremity ultrasound was done at that time and again was negative for DVT. ASSESSMENT AND PLAN: Infected prosthetic joint. At this time, he will be continued on vancomycin. Cefepime will be added empirically pending results of his aspiration and culture. We will follow along with you. Thank you for this consultation.
[2016-10-24] MEDS ORDERED: VANCOMYCIN CONSULT ACTIVE PRN (16:00)
[2016-10-24] MEDS: D5W AND 1/2NSS + 20MEQ KCL 1000 ML IV SCH (16:11)
--- NOTE | 2016-10-24 16:31 | Pharmacy Progress Note ---
Pharmacy Antibiotic Consult Date of Service: Oct 24, 2016. Pharmacy Dosing Scope Pharmacy is consulted to initiate Vanco IV dosing therapy, order appropriate labs and adjust drug dose/frequency. Subjective The patient is a 56 year old male admitted on Oct 24, 2016 at 13:29. Objective Height (Feet): 6 Height (Inches): 1.00 Weight (Kilograms): 102.000 Lab Results (24hrs): Laboratory Tests Test 10/24/16 14:39 White Blood Count 9.43 K/uL Micro Results: Item Value Date Time Gram Stain Received 10/24/16 1222 Joint Fluid/Space (Synovial) Knee Right Pending Assessment & Plan Pt is being treated for cellulitis. Pt failed outpt Doxy. WBC are currently WNL , Pt is afebrile. Renal fxn is currently pending in the computer; however, I have dosed Mr. Sharma off of his renal fxn from 10/14/16. Vanco * Set to receive one time Vanco 2600mg (25mg/kg) at 1645 * then Vanco 1500mg (15mg/kg) Q10 set to start 0000 on 10/25/16 * Vanco trough ordered for 10/26/16 prior to the 4th MD dose. Pharmacy will continue to follow and will adjust dose/frequency as necessary. Thank you
[2016-10-24] MEDS ORDERED: VANCOMYCIN INJ 2,600 MG in SODIUM CHLORIDE 0.9% 500ML 500 ML IV ONE (16:45)
[2016-10-24 16:54] LABS: SYNOVIAL FLUID APPEARANCE BLOODY; SYNOVIAL FLUID COLOR RED
[2016-10-24 17:11] LABS: CREATININE 0.91 mg/dl (0.60-1.40)
[2016-10-24] MEDS ORDERED: NURSING VERBAL MED ORDER ONE (17:45)
[2016-10-24] MEDS: OXYCODONE HCL IR 5 MG TAB (IMMEDIATE RELEASE) PO PRN ×2 (17:55→20:49)
[2016-10-24] MEDS: IMIPENEM/CILASTATIN IV 500 MG in DEXTROSE 5% 100ML 100 ML IV SCH ×2 (18:48→23:36)
[2016-10-24] MEDS: ENALAPRIL MALEATE 10 MG TAB PO SCH ×2 (20:48→20:51)
[2016-10-24] MEDS: OXYCODONE HCL 10 MG TABCR (OXYCONTIN) PO SCH (20:49)
[2016-10-24] MEDS: AMLODIPINE BESYLATE 5 MG TAB PO SCH ×2 (20:49→20:51)
[2016-10-24 23:10] VITALS: BP 117/70; PULSE 97; TEMP 37.4; O2SAT 91
[2016-10-25] MEDS: MoRPHine SULFATE 2 MG/ML CARP IV PRN ×3 (04:01→10:36)
[2016-10-25] MEDS: VANCOMYCIN INJ 1,500 MG in SODIUM CHLORIDE 0.9% 500ML 500 ML IV SCH ×3 (04:20→23:58)
[2016-10-25] MEDS: D5W AND 1/2NSS + 20MEQ KCL 1000 ML IV SCH ×2 (04:21→18:44)
[2016-10-25 05:20] VITALS: BP 115/66; PULSE 93; TEMP 37.1; O2SAT 93
[2016-10-25] MEDS: IMIPENEM/CILASTATIN IV 500 MG in DEXTROSE 5% 100ML 100 ML IV SCH ×4 (05:28→23:58)
[2016-10-25 06:49] VITALS: BP 146/71; PULSE 81; TEMP 36.9; O2SAT 93
[2016-10-25 06:50] LABS: CREATININE 0.73 mg/dl (0.60-1.40)
[2016-10-25] MEDS: AMPHETAMINE ASP/SULF/DEXTRAMPH 10 MG TAB PO SCH (09:00)
[2016-10-25] MEDS: ENALAPRIL MALEATE 10 MG TAB PO SCH ×2 (09:12→21:02)
[2016-10-25] MEDS: OXYCODONE HCL 10 MG TABCR (OXYCONTIN) PO SCH (09:12)
[2016-10-25] MEDS: AMLODIPINE BESYLATE 5 MG TAB PO SCH ×2 (09:12→21:05)
[2016-10-25] MEDS: DESVENLAFAXINE SUCCINATE 50 MG TABCR PO SCH (09:21)
--- NOTE | 2016-10-25 10:45 | Progress Note ---
Subjective Date of Service: Oct 25, 2016. Subjective pt remains on emperic abx, tolerating well. afebrile since admission, esr and crp elevated, aspiration with 12,819 wbc 98%N. culture pending. Objective Vital Signs Date Time Temp Pulse Resp B/P Pulse Ox O2 Delivery O2 Flow Rate FiO2 10/25/16 06:49 36.9 81 20 146/71 93 Room Air 10/24/16 23:35 Room Air 10/24/16 23:10 37.4 97 16 117/70 91 Room Air 10/24/16 15:50 Room Air 10/24/16 15:16 37.2 88 17 144/81 93 Room Air 10/24/16 13:52 37.1 88 16 155/80 93 Room Air Laboratory Results Item Value Date Time Gram Stain - Final Resulted 10/24/16 1222 Joint Fluid/Space (Synovial) Knee Right Last 24 Hours Test 10/24/16 12:22 10/24/16 14:39 10/25/16 06:05 Synovial Fluid Source KNEE Synovial Fluid Color RED Synovial Fluid Appearance BLOODY Synovial Fluid WBC 47022 /uL Synovial Fluid RBC 39818 /uL Synovial Fluid Polynuclear WBCs % 98.0 % Synovial Fluid Mononuclear WBCs % 2.0 % White Blood Count 9.43 K/uL Red Blood Count 3.52 M/uL Hemoglobin 10.7 g/dL Hematocrit 30.3 % Mean Corpuscular Volume 86.1 fL Mean Corpuscular Hemoglobin 30.4 pg Mean Corpuscular Hemoglobin Concent 35.3 g/dl RDW Standard Deviation 41.4 fL RDW Coefficient of Variation 13.1 % Platelet Count 505 K/uL Mean Platelet Volume 8.3 fL Erythrocyte Sedimentation Rate 35 mm/hr Creatinine 0.91 mg/dl 0.73 mg/dl Est Creatinine Clear Calc Drug Dose 112.4 ml/min 140.1 ml/min Estimated GFR () 108.0 119.3 Estimated GFR (Non- 93.2 103.0 C-Reactive Protein 13.30 mg/dl Assessment and Plan (1) Post op infection Assessment & Plan: continue abx, follow culture result, ? OR.
--- NOTE | 2016-10-25 13:45 | Orthopedic Progress Note ---
Orthopedic Progress Note Date of Service Oct 25, 2016. Subjective Additional Notes: Pt lying in bed. States his knee hurts and that he's due for another Morphine shot. States that the knee looks less red today and is not as hot. No other complaints. Objective calves soft nontender, N/V intact, incision C/D/I, A&O x3, toes mobile Mild area of erythema noted on the lateral aspect of the incision. No drainage. Knee swollen. Had the knee flexed intially to approx 80 deg. Able to extend the knee but is somewhat painful in doing so. States that it "takes a few minutes to get it going". When taking his knee through range of motion, he does not have severe pain by any means. Date Time Temp Pulse Resp B/P Pulse Ox O2 Delivery O2 Flow Rate FiO2 10/25/16 06:49 36.9 81 20 146/71 93 Room Air 10/24/16 23:35 Room Air 10/24/16 23:10 37.4 97 16 117/70 91 Room Air 10/24/16 15:50 Room Air 10/24/16 15:16 37.2 88 17 144/81 93 Room Air 10/24/16 13:52 37.1 88 16 155/80 93 Room Air Laboratory Results 24 Hours: Test 10/24/16 14:39 Hematocrit 30.3 % Hemoglobin 10.7 g/dL Additional Notes: RUN DATE: 10/25/16 [facility] LAB PAGE 1 RUN TIME: 1252 Specimen Inquiry PATIENT: SAMANTA CORTEZ LOC: [facility] U # : [id number] AGE/SX: 56/M ROOM: W355 REG : 10/24/[address]: Isaiah Beth M.D. : 1960 BED: 2 DIS : STATUS: ADM IN TLOC: SPEC #: [id number] GORGE: 10/24/16-1221 STATUS: RES REQ #: [id number] RECD: 10/24/[address]: Isaiah Beth M.D. SOURCE: JOINT FLSP ENTR: 10/24/16 [facility] DR: SPDESMariela: KNEE RIGHT ORDERED: JNT FL/SP CU/SM Procedure Result Verified Site GRAM STAIN Final 10/25/16 RESULT MANY POLYS NO ORGANISMS SEEN JOINT FLUID/SPACE CULTURE Preliminary 10/25/16 NO GROWTH TO DATE. ----- Assessment & Plan Assessment: Likely Cellulitis Right Knee s/p TKA almost 2 weeks out. Plan: Discussed plan with Dr Beth this AM. If Gram stain neg for organisms, will hold off surgery today. Follow Cx's for now: antibx as per ID Team Some improvement noted by patient Will add his oral pain meds and let him eat. (1) Post op infection Inhouse Planning Pain Management: Morphine, Oxy IR DVT Prophylaxis: TEDs, SCDs
[2016-10-25] MEDS: MoRPHine SULFATE CR 15 MG TAB (MS CONTIN) PO SCH (13:59)
[2016-10-25] MEDS: OXYCODONE HCL IR 5 MG TAB (IMMEDIATE RELEASE) PO PRN ×4 (14:06→23:17)
[2016-10-25 19:34] VITALS: O2SAT 95
[2016-10-25 19:48] VITALS: BP 146/88; PULSE 89; TEMP 37.3; O2SAT 95
[2016-10-25 23:09] VITALS: BP 144/84; PULSE 94; TEMP 37.1; O2SAT 92
[2016-10-26] MEDS: MoRPHine SULFATE CR 15 MG TAB (MS CONTIN) PO SCH ×2 (01:53→13:57)
[2016-10-26] MEDS: OXYCODONE HCL IR 5 MG TAB (IMMEDIATE RELEASE) PO PRN ×5 (01:54→20:16)
[2016-10-26] MEDS ORDERED: VANCOMYCIN TROUGH ONE ×2 (05:30→09:30)
[2016-10-26] MEDS: IMIPENEM/CILASTATIN IV 500 MG in DEXTROSE 5% 100ML 100 ML IV SCH ×4 (05:47→23:49)
[2016-10-26 06:27] LABS: BASO % 0.3 %; BASO ABS # 0.03 K/uL (0-0.2); COMPLETE YES; EOS % 3.3 %; IG% 0.2 %; LYMPH % 17.8 %; LYMPH ABS # 1.68 K/uL (1.2-3.4); MEAN CELL VOLUME 86.2 fL (80-100); MEAN CORPUSCULAR HEMOGLOBIN 29.6 pg (25-34); MEAN CORPUSCULAR HGB CONC 34.3 g/dl (32-36); MEAN PLATELET VOLUME 8.4 fL (7.4-10.4); MONO % 9.6 %; NEUT % 68.8 %; PLATELET COUNT 524 K/uL (130-400); RED BLOOD COUNT 3.48 M/uL (4.7-6.1); WHITE BLOOD COUNT 9.45 K/uL (4.8-10.8)
--- NOTE | 2016-10-26 06:29 | Orthopedic Progress Note ---
Orthopedic Progress Note Date of Service Oct 26, 2016. Subjective Post OP Day: 2 Reports: complaints (difficulty extending his knee all the way without pain), feeling well, pain controlled w PO medications, Denies: SOB, calf pain, chest pain, light headedness, nausea / vomiting Additional Notes: Patient states he is feeling a little better. He does not notice if he is running a fever much anymore. He states his knee "does not look as red anymore. " Objective calves soft nontender, N/V intact, capillary refill less than 2 sec., incision C /D/I, A&O x3, toes mobile Patient was able to flex knee to 90 degrees, extend 10 degrees short of full extension. He did not seem like he was in severe pain upon examination. Skin was warm and erythema was on the lateral portion of the incision. Incision was C/D/I. Date Time Temp Pulse Resp B/P Pulse Ox O2 Delivery O2 Flow Rate FiO2 10/25/16 23:09 37.1 94 18 144/84 92 Room Air 10/25/16 19:48 37.3 89 20 146/88 95 Room Air 10/25/16 19:34 95 Room Air 10/25/16 07:20 Room Air 10/25/16 06:49 36.9 81 20 146/71 93 Room Air Laboratory Results 24 Hours: Test 10/26/16 06:00 Assessment & Plan Assessment: Likely Cellulitis Right Knee s/p TKA almost 2 weeks out. Plan: Patient scheduled for washout on 10/27/16. Cultures are still pending but Preliminary shows no growth as of now, Labs are pending this morning. Follow Cx's for now: antibx as per ID Team Some improvement noted by patient (1) Post op infection Assessment & Plan: continue abx, follow culture result, OR for washout on Inhouse Planning Pain Management: Morphine, Oxy IR DVT Prophylaxis: TEDs, SCDs
[2016-10-26 06:58] LABS: CREATININE 0.83 mg/dl (0.60-1.40)
[2016-10-26 07:25] VITALS: BP 129/73; PULSE 89; TEMP 37; O2SAT 94
[2016-10-26] MEDS: D5W AND 1/2NSS + 20MEQ KCL 1000 ML IV SCH ×2 (08:27→20:17)
[2016-10-26] MEDS: DESVENLAFAXINE SUCCINATE 50 MG TABCR PO SCH (08:32)
[2016-10-26] MEDS: AMLODIPINE BESYLATE 5 MG TAB PO SCH ×2 (08:32→20:28)
[2016-10-26] MEDS: ENALAPRIL MALEATE 10 MG TAB PO SCH ×2 (08:33→20:29)
[2016-10-26] MEDS: AMPHETAMINE ASP/SULF/DEXTRAMPH 10 MG TAB PO SCH (08:34)
--- NOTE | 2016-10-26 10:06 | Progress Note ---
Subjective Date of Service: Oct 26, 2016. Subjective Pt evaluation today including: conversation w/ patient, physical exam, chart review, lab review pt seen in followup, tolerating abx. no fevers since admission, still with pain , asking for change in meds. ambulating to bathroom without difficulty, feels swelling more today, no drainage. no diarrhea. eating well. for OR in am. aspirate culture ngtd. Objective Vital Signs Date Time Temp Pulse Resp B/P Pulse Ox O2 Delivery O2 Flow Rate FiO2 10/26/16 07:25 37.0 89 18 129/73 94 Room Air 10/25/16 23:09 37.1 94 18 144/84 92 Room Air 10/25/16 19:48 37.3 89 20 146/88 95 Room Air 10/25/16 19:34 95 Room Air Physical Exam General Appearance: WD/WN, no apparent distress Eyes: EOMI Neck: supple Respiratory/Chest: lungs clear, normal breath sounds, no respiratory distress Cardiovascular: regular rate, rhythm, no edema Abdomen: soft Extremities: non-tender, normal inspection, no pedal edema Neurologic/Psychiatric: alert, oriented x 3 Skin: normal color Comments: knee staple intact, no drainage or bleeding, still with edema, warmth and erythema. tender to palpation Laboratory Results Item Value Date Time Gram Stain - Final Resulted 10/24/16 1222 Joint Fluid/Space (Synovial) Knee Right Last 24 Hours Test 10/26/16 06:00 10/26/16 09:17 White Blood Count 9.45 K/uL Red Blood Count 3.48 M/uL Hemoglobin 10.3 g/dL Hematocrit 30.0 % Mean Corpuscular Volume 86.2 fL Mean Corpuscular Hemoglobin 29.6 pg Mean Corpuscular Hemoglobin Concent 34.3 g/dl Platelet Count 524 K/uL Mean Platelet Volume 8.4 fL Neutrophils (%) (Auto) 68.8 % Lymphocytes (%) (Auto) 17.8 % Monocytes (%) (Auto) 9.6 % Eosinophils (%) (Auto) 3.3 % Basophils (%) (Auto) 0.3 % Neutrophils # (Auto) 6.50 K/uL Lymphocytes # (Auto) 1.68 K/uL Monocytes # (Auto) 0.91 K/uL Eosinophils # (Auto) 0.31 K/uL Basophils # (Auto) 0.03 K/uL RDW Standard Deviation 41.7 fL RDW Coefficient of Variation 13.1 % Immature Granulocyte % (Auto) 0.2 % Immature Granulocyte # (Auto) 0.02 K/uL Creatinine 0.83 mg/dl Est Creatinine Clear Calc Drug Dose 123.2 ml/min Estimated GFR () 113.2 Estimated GFR (Non- 97.7 Assessment and Plan (1) Post op infection Assessment & Plan: continue abx and follow cultures. for OR in am. await findings.
[2016-10-26] MEDS: VANCOMYCIN INJ 1,500 MG in SODIUM CHLORIDE 0.9% 500ML 500 ML IV SCH (10:16)
[2016-10-26] MEDS ORDERED: KETOROLAC TROMETHAMINE 30 MG/ML VIAL IV PRN (12:00)
--- NOTE | 2016-10-26 12:52 | Pharmacy Progress Note ---
Pharmacy Antibiotic Prog Note Date of Service: Oct 26, 2016. Subjective: The patient is currently receiving Vancomycin 1,500mg IV every 10 hours + Primaxin 500mg IV every 6 hrs. The patient is currently on day # 3 of abx IV therapy. Objective: Height (Feet): 6 Height (Inches): 1.00 Weight (Kilograms): 102.000 Levels: Item Value Date Time Vancomycin Level Trough 14.0 mcg/ml 10/26/16 0917 Lab Results (24hrs): Laboratory Tests Test 10/26/16 06:00 Creatinine 0.83 mg/dl White Blood Count 9.45 K/uL Red Blood Count 3.48 M/uL Hemoglobin 10.3 g/dL Hematocrit 30.0 % Mean Corpuscular Volume 86.2 fL Mean Corpuscular Hemoglobin 29.6 pg Mean Corpuscular Hemoglobin Concent 34.3 g/dl Platelet Count 524 K/uL Mean Platelet Volume 8.4 fL Neutrophils (%) (Auto) 68.8 % Lymphocytes (%) (Auto) 17.8 % Monocytes (%) (Auto) 9.6 % Eosinophils (%) (Auto) 3.3 % Basophils (%) (Auto) 0.3 % Neutrophils # (Auto) 6.50 K/uL Lymphocytes # (Auto) 1.68 K/uL Monocytes # (Auto) 0.91 K/uL Eosinophils # (Auto) 0.31 K/uL Basophils # (Auto) 0.03 K/uL Micro Results: Item Value Date Time Gram Stain - Final No growth to date 10/24/16 1222 Joint Fluid/Space (Synovial) Knee Right Assessment & Plan: 56yo male receiving IV Vanco + Primaxin for post-op knee infection. Pt afebrile since admission. Joint Fluid/Space (Synovial) Knee Right cultures are negative to date. Pt to go to OR tomorrow AM for washout. Renal function stable. Vancomycin likely at steady state at this point. Vancomycin: * Trough level today is: Slightly subtherapeutic at 14mcg/ml for deep knee infection. * Increase dose to Vancomycin 1,650mg IV every 10 hours. * Goal trough level estimate: between 15 - 20 mcg/mL * Will re-order repeat trough level for 10/28. Primaxin: * Pt w/o history of MDRO * Cultures negative to date * Most likely chosen d/t penicillin & sulfa allergy. * Please consider de-escalating when appropriate. Pharmacy will continue to follow and will adjust dose/frequency as necessary. Thank you
[2016-10-26 15:36] VITALS: BP 169/81; PULSE 93; TEMP 37; O2SAT 96
[2016-10-26 16:00] VITALS: O2SAT 96
[2016-10-26] MEDS ORDERED: NURSING VERBAL MED ORDER ONE (20:00)
[2016-10-26] MEDS: VANCOMYCIN INJ 1,650 MG in SODIUM CHLORIDE 0.9% 500ML 500 ML IV SCH (20:16)
[2016-10-26 20:20] VITALS: BP 141/70; PULSE 85; O2SAT 97
[2016-10-26 22:59] VITALS: BP 118/71; PULSE 79; TEMP 37.1; O2SAT 91
[2016-10-27] VITALS (9 sets, daily range): BP systolic 120–146; BP diastolic 65–82; PULSE 80–107; TEMP 36.7–36.9; O2SAT 91–96
[2016-10-27] MEDS: MoRPHine SULFATE CR 15 MG TAB (MS CONTIN) PO SCH ×2 (01:41→13:29)
[2016-10-27] MEDS: VANCOMYCIN INJ 1,650 MG in SODIUM CHLORIDE 0.9% 500ML 500 ML IV SCH ×2 (05:19→17:30)
[2016-10-27] MEDS: IMIPENEM/CILASTATIN IV 500 MG in DEXTROSE 5% 100ML 100 ML IV SCH ×4 (05:19→23:13)
[2016-10-27 07:01] LABS: CREATININE 0.72 mg/dl (0.60-1.40)
[2016-10-27] MEDS: OXYCODONE HCL IR 5 MG TAB (IMMEDIATE RELEASE) PO PRN (07:50)
[2016-10-27] MEDS: D5W AND 1/2NSS + 20MEQ KCL 1000 ML IV SCH ×2 (10:09→23:13)
[2016-10-27] MEDS: AMLODIPINE BESYLATE 5 MG TAB PO SCH ×2 (10:10→20:29)
[2016-10-27] MEDS: DESVENLAFAXINE SUCCINATE 50 MG TABCR PO SCH (10:10)
[2016-10-27] MEDS: ENALAPRIL MALEATE 10 MG TAB PO SCH ×2 (10:10→20:30)
--- NOTE | 2016-10-27 10:10 | Progress Note ---
Subjective Date of Service: Oct 27, 2016. Subjective pt sleeping, for wash out and poly exchange later today. tolerating abx. wound culture negative. was on doxy lighter captain. afebrile. no new labs. Objective Vital Signs Date Time Temp Pulse Resp B/P Pulse Ox O2 Delivery O2 Flow Rate FiO2 10/27/16 08:50 93 Room Air 10/27/16 08:02 36.9 80 16 128/70 93 Room Air 10/27/16 07:55 Room Air 10/26/16 23:45 Room Air 10/26/16 22:59 37.1 79 18 118/71 91 Room Air 10/26/16 20:20 85 141/70 97 Room Air 10/26/16 16:00 96 Room Air 10/26/16 15:36 37.0 93 16 169/81 96 Room Air 10/26/16 11:00 Room Air Physical Exam General Appearance: WD/WN, no apparent distress Neck: supple Respiratory/Chest: normal breath sounds, no respiratory distress Skin: normal color Laboratory Results Item Value Date Time Gram Stain - Final Complete 10/24/16 1222 Joint Fluid/Space (Synovial) Knee Right Last 24 Hours Test 10/27/16 06:17 Creatinine 0.72 mg/dl Est Creatinine Clear Calc Drug Dose 142.1 ml/min Estimated GFR () 120.0 Estimated GFR (Non- 103.6 Assessment and Plan (1) Post op infection Assessment & Plan: continue abx for now. await or findings, please send deep cultures. suspect he will need prolonged course of abx, culture from aspirate is negative but pt was on doxy lighter captain, this may account for negative culture. If OR cultures and aspirate culture remain negative, would suggest 6 weeks IV emperic Dapto 6mg/kg, (vanco as alternative if insurance coverage mandates) with weekly cbc,chem 12, esr, cpk. will need picc line, spoke with case management, suspect he will be inpt through weekend. will need ID follow up post d/c as well.
[2016-10-27] MEDS: AMPHETAMINE ASP/SULF/DEXTRAMPH 10 MG TAB PO SCH (10:12)
[2016-10-27] MEDS ORDERED: BACITRACIN 50000 UNIT VIAL ONE (11:20)
[2016-10-27] MEDS ORDERED: MIDAZOLAM HCL 1 MG/ML 2ML VIAL ONE (12:03)
[2016-10-27] MEDS ORDERED: FENTANYL CITRATE INJ 50 MCG/1 ML 2 ML VIAL ONE ×5 (12:03→13:50)
[2016-10-27] MEDS ORDERED: POVIDONE-IODINE OP SOLN 30 ML BTL ONE (12:13)
[2016-10-27] MEDS ORDERED: HYDROmorphone INJ 2 MG/ML SYR/VIAL ONE (12:43)
[2016-10-27] MEDS ORDERED: LIDOCAINE HCL 2% 2 ML VIAL (20MG/ML) ONE (12:46)
[2016-10-27] MEDS ORDERED: PROPOFOL IV EMULSION 10 MG/ML 20 ML VIAL IV ONE (12:46)
[2016-10-27] MEDS ORDERED: RANITIDINE HCL 25 MG/ML INJ ONE (12:46)
[2016-10-27] MEDS ORDERED: ONDANSETRON INJ 2 MG/ML 2 ML VIAL ONE (12:46)
[2016-10-27] MEDS ORDERED: DEXAMETHASONE SOD INJ 4 MG/ML VIAL ONE (12:46)
[2016-10-27] MEDS ORDERED: METOCLOPRAMIDE HCL INJ 5 MG/ML 2 ML VIAL ONE (12:46)
[2016-10-27] MEDS ORDERED: NURSING VERBAL MED ORDER ONE (13:15)
[2016-10-27] MEDS ORDERED: TRANEXAMIC ACID AMP 1,000 MG in NSS 100ML IV SCH (13:30)
--- NOTE | 2016-10-27 14:10 | [facility] Post Operative Brief Note ---
Immediate Operative Summary Operative Date Oct 27, 2016. Pre-Operative Diagnosis Right Knee Status Post Total Knee Arthroplasty and Cellulitis Post-Operative Diagnosis Right Knee Status Post Total Knee Arthroplasty and Cellulitis Procedure(s) Performed Right Knee Irrigation and Debridement and Poly Exchange Surgeon Dr. Beth Plant Operations Engineer Surgeon(s) none Estimated Blood Loss 20 ml Findings pocket of fluid laterally and in pre-patellar bursa, questionable looking fibrinous material within the joint and deep to the poly post Specimens Culture #1--Pre-Patellar Bursa--for STAT gram stain, routine culture and sensitivity, aerobes and anaerobes Culture #2--Right Knee Lateral Gutter--for STAT gram stain, routine culture and sensitivity, aerobes and anaerobes Culture #3--Deep Right Knee Tissue--for STAT gram stain, routine culture and sensitivity, aerobes and anaerobes Culture #4--Right Knee Synovium--for STAT gram stain, routine culture and sensitivity, aerobes and anaerobes --All cultures sent to lab at 1302 A. Removed Hardware Right Knee (Poly) Drains 2 hemovac Anesthesia geta Complication(s) None Disposition Recovery Room / PACU
[2016-10-27] MEDS ORDERED: ATROPINE SULFATE 0.1 MG/ML 5ML SYR IV PRN (14:15)
[2016-10-27] MEDS ORDERED: ALUMINUM/MAGNESIUM/SIMETH (MAALOX MAX) 30 ML UDC PO PRN (14:15)
[2016-10-27] MEDS ORDERED: KETOROLAC TROMETHAMINE 30 MG/ML VIAL IV. PRN (14:15)
[2016-10-27] MEDS ORDERED: FLUMAZENIL 0.1 MG/1 ML 10 ML VIAL IV PRN (14:15)
[2016-10-27] MEDS ORDERED: HYDROmorphone INJ 1 MG/ML SYR IV PRN (14:15)
[2016-10-27] MEDS ORDERED: NALOXONE HCL 0.4 MG/1 ML VIAL/CARP IV PRN (14:15)
[2016-10-27] MEDS ORDERED: METOCLOPRAMIDE HCL INJ 5 MG/ML 2 ML VIAL IV PRN (14:15)
[2016-10-27] MEDS ORDERED: EpHEDrine SULFATE INJ 50 MG/ML AMP IV PRN (14:15)
[2016-10-27] MEDS ORDERED: LABETALOL HCL IV 5 MG/ML 20ML IV PRN (14:15)
[2016-10-27] MEDS ORDERED: ONDANSETRON INJ 2 MG/ML 2 ML VIAL IV PRN ×2 (14:15)
[2016-10-27] MEDS ORDERED: PROMETHAZINE HCL INJ 12.5 MG in SODIUM CHLORIDE 0.9% 50ML 50 ML IV PRN (14:15)
[2016-10-27] MEDS ORDERED: MAGNESIUM HYDROXIDE SUSP 30 ML UDC PO PRN (14:15)
--- NOTE | 2016-10-27 14:47 | DIAGNOSTIC IMAGING REPORT ---
RIGHT KNEE 1 OR 2 VIEWS ROUTINE CLINICAL HISTORY: AP/LATERAL IN PACU RIGHT KNEE Right joint replacement COMPARISON: 10/13/2016 DISCUSSION: Total joint replacement with good contact between prosthetic and underlying bone. Surgical drains are in position. Expected soft tissue postoperative change IMPRESSION: Anatomic alignment status post total right knee replacement Electronically signed by: Terry Fong M.D. 10/27/2016 2:46 PM Dictated Date/Time: 10/27/2016 2:44 PM
--- NOTE | 2016-10-27 15:08 | Anesthesiology Progress Note ---
Anesthesia Post Op Note Date & Time Oct 27, 2016 at 15:08 Vital Signs Pain Intensity: 3 Vital Signs Past 12 Hours Date Time Temp Pulse Resp B/P Pulse Ox O2 Delivery O2 Flow Rate FiO2 10/27/16 14:55 37.0 88 14 144/90 97 Nasal Cannula 3 10/27/16 14:45 90 15 129/82 97 Nasal Cannula 3 10/27/16 14:35 84 15 123/82 100 Mask 10 10/27/16 14:25 91 17 140/77 95 Mask 10 10/27/16 14:18 36.6 88 14 102/62 93 Mask 10 10/27/16 08:50 93 Room Air 10/27/16 08:02 36.9 80 16 128/70 93 Room Air 10/27/16 07:55 Room Air Notes Mental Status: alert / awake / arousable, participated in evaluation Pt Amnestic to Procedure: Yes Nausea / Vomiting: adequately controlled Pain: adequately controlled Airway Patency, RR, SpO2: stable & adequate BP & HR: stable & adequate Hydration State: stable & adequate Anesthetic Complications: no major complications apparent
--- NOTE | 2016-10-27 16:10 | OPERATIVE REPORT ---
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 POSTOPERATIVE DIAGNOSIS: Same. PROCEDURE: Right knee irrigation and debridement and polyethylene exchange. SURGEON: Dr. Beth. CARDIAC REHAB NURSE: Josue Portillo PA-C who was necessary for assistance of procedure with positioning, prepping, draping, retraction and closure. ANESTHESIA: General endotracheal anesthesia. SPECIMENS: Multiple cultures, both superficial as well as deep. IMPLANTS: New 6 x 9 mm polyethylene liner for Trejo \T\ Nephew Journey version 2. DRAINS: Two Hemovac. ESTIMATED BLOOD LOSS: 20 mL. COMPLICATIONS: None. INDICATIONS: This patient is a 56-year-old male, who approximately 2 weeks ago underwent a right total knee arthroplasty. In his postoperative period, he had a fair amount of bloody drainage out of this Hemovac. This resolved and he was discharged to home. The following week he developed increasing fevers. He had an examination of the wound and the knee was initially relatively benign. Chest x-ray was negative. Ultrasound was negative for DVT. He was placed on oral doxycycline. He continued to have persistent pain and fevers. Aspiration was performed, which was mainly just serosanguineous fluid. Gram stain was negative. Cultures were negative. He had increasing erythema along the incision site as well as laterally. He had some slight improvement with IV antibiotics, but had persistent pain as well as swelling and erythema in the knee. The cultures from his aspiration were negative, but with his persistent pain and the fevers he had been having, which resolved after being started on IV antibiotics were suspicious for deep infection. We elected to proceed with irrigation and debridement and polyethylene exchange. Risks, benefits, and alternatives of surgery including but not limited to infection, DVT, pain, stiffness, need for urgent surgery persistent of the infection, need for later removal of the implants, damage to blood vessels, damage to nerves, risks of anesthesia were discussed with the patient and he wished to proceed. DESCRIPTION OF PROCEDURE: The patient was identified, laterality was confirmed and marked. He received a preoperative antibiotic, which he had been receiving on the floor. He had been receiving both vancomycin as well as imipenem. A well-padded tourniquet was placed on the leg. Limb was then prepped and draped using sterile manner with ChloraPrep. Limb was exsanguinated and tourniquet was inflated. We reopened his previous surgical incision. I encountered a fair amount of fluid in the prepatellar bursa that was cultured. I then removed the Vicryl sutures and subcutaneous tissues. There is a questionable pocket of fluid and material distally along the lateral aspect of the region of the patellar tendon. This was a separate set of cultures. I then removed the deep Vicryl sutures to the joint and encountered serosanguineous type fluid, but it looked a bit cloudy. This fluid was cultured as well and there was also some fibrinous material, particularly essentially near the polyethylene post was concerning for infection that was sent for tissue culture as well. We performed a thorough irrigation and debridement sharply down to the level of bone. I also utilized the Versajet to debride the soft tissues and synovium both superficially as well as deep. The debridement utilized a combination of a knife, Bovie and rongeur. Then thoroughly irrigated the wound with 2 bags of bacitracin impregnated fluid with a Pulsavac after removing the previous 9 mm poly. Once the irrigation and debridement were performed, we placed clean drapes as well as changed our gloves. We trialed a 9 mm poly and again the 9 mm poly had a good fit, good soft tissue balance and good range of motion. I removed the trial component and then put a definitive 6.9 mm polyethylene liner into position. A deep drain was placed, this was 2 medium Hemovacs. The arthrotomy was then closed with interrupted #1 Vicryl sutures, subcutaneous tissues with interrupted 2-0 Vicryl suture and skin with jose. A Prevena wound VAC was placed. All needle and sponge counts were correct at the end of the procedure. The patient was transferred to the PACU in stable condition without apparent complication. Due to the suspicious nature of the material, plan will be for placement of a PICC line and 4-6 weeks of IV antibiotics. I attest to the content of the Intraoperative Record and any orders documented therein. Any exceptio ns are noted below.
[2016-10-27] MEDS: FERROUS GLUCONATE 324 MG TAB PO SCH (18:34)
[2016-10-27] MEDS: ASPIRIN 81 MG ECTAB PO SCH (20:30)
[2016-10-28] VITALS (8 sets, daily range): BP systolic 127–137; BP diastolic 74–81; PULSE 78–88; TEMP 36.8–37.1; O2SAT 91–94
[2016-10-28] MEDS: MoRPHine SULFATE CR 15 MG TAB (MS CONTIN) PO SCH ×2 (01:05→13:57)
[2016-10-28] MEDS ORDERED: VANCOMYCIN TROUGH ONE ×2 (01:30→03:30)
[2016-10-28] MEDS: OXYCODONE HCL IR 5 MG TAB (IMMEDIATE RELEASE) PO PRN ×4 (02:47→22:17)
[2016-10-28 03:29] LABS: HEMATOCRIT 26.7 % (42-52); MEAN CORPUSCULAR HEMOGLOBIN 29.3 pg (25-34); MEAN CORPUSCULAR HGB CONC 34.5 g/dl (32-36); MEAN PLATELET VOLUME 8.6 fL (7.4-10.4); PLATELET COUNT 555 K/uL (130-400); RED BLOOD COUNT 3.14 M/uL (4.7-6.1); WHITE BLOOD COUNT 10.02 K/uL (4.8-10.8)
[2016-10-28 03:45] LABS: BUN/CREATININE RATIO 12.9 (10-20); CALCIUM 7.7 mg/dl (8.5-10.1); CREATININE 0.88 mg/dl (0.60-1.40); POTASSIUM 3.3 mmol/L (3.5-5.1)
[2016-10-28] MEDS: VANCOMYCIN INJ 1,650 MG in SODIUM CHLORIDE 0.9% 500ML 500 ML IV SCH (04:03)
[2016-10-28] MEDS: IMIPENEM/CILASTATIN IV 500 MG in DEXTROSE 5% 100ML 100 ML IV SCH ×4 (05:58→23:35)
[2016-10-28] MEDS: AMPHETAMINE ASP/SULF/DEXTRAMPH 10 MG TAB PO SCH (09:00)
[2016-10-28] MEDS: FERROUS GLUCONATE 324 MG TAB PO SCH ×3 (09:16→17:36)
[2016-10-28] MEDS: MULTIVITAMIN TAB PO SCH (09:17)
[2016-10-28] MEDS: AMLODIPINE BESYLATE 5 MG TAB PO SCH ×2 (09:17→20:33)
[2016-10-28] MEDS: PANTOprazole SOD 40 MG TAB PO SCH (09:17)
[2016-10-28] MEDS: ASPIRIN 81 MG ECTAB PO SCH ×2 (09:18→20:34)
[2016-10-28] MEDS: ENALAPRIL MALEATE 10 MG TAB PO SCH ×2 (09:18→20:34)
[2016-10-28] MEDS: DESVENLAFAXINE SUCCINATE 50 MG TABCR PO SCH (09:19)
--- NOTE | 2016-10-28 09:36 | Pharmacy Progress Note ---
Pharmacy Antibiotic Prog Note Date of Service: Oct 28, 2016. Subjective: The patient is currently receiving vancomycin 1650 mg iv q 10 hrs for knee infection The patient is currently on day # 5 of IV therapy. Objective: Height (Feet): 6 Height (Inches): 1.00 Weight (Kilograms): 102.000 Levels: Item Value Date Time Vancomycin Level Trough 14.2 mcg/ml 10/28/16 0325 Vancomycin Level Trough 14.0 mcg/ml 10/26/16 0917 Lab Results (24hrs): Laboratory Tests Test 10/28/16 03:25 BUN/Creatinine Ratio 12.9 Blood Urea Nitrogen 11 mg/dl Creatinine 0.88 mg/dl White Blood Count 10.02 K/uL Micro Results: Item Value Date Time Gram Stain - Final Resulted 10/27/16 1257 Tissue Knee Right Gram Stain - Final Resulted 10/27/16 1255 Drainage-Deep Knee Right Gram Stain - Final Resulted 10/27/16 1250 Drainage-Deep Knee Right Gram Stain - Final Resulted 10/27/16 1249 Drainage-Deep Knee Right Gram Stain - Final Complete 10/24/16 1222 Joint Fluid/Space (Synovial) Knee Right Assessment & Plan: Patient receiving vancomycin and imipenem for deep seeded knee infection. ID is following patient. Cultures of knee are pending. Vancomycin: * Trough level this am was slightly subtherapeutic at ~14 mcg/ml (goal 15-20 mcg /ml for deeper infection) * Will increase the dose to 1750 mg (~17 mg/kg) iv q 10 hrs to achieve a higher trough * Will plan to recheck trough prior to the 0600 dose on 10/30 to ensure therapeutic * ID following patient, per note patient may need extended duration of antibiotics Pharmacy will continue to follow and will adjust dose/frequency as necessary. Thank you
[2016-10-28] MEDS: MoRPHine SULFATE 2 MG/ML CARP IV PRN (11:16)
--- NOTE | 2016-10-28 11:37 | Orthopedic Progress Note ---
Orthopedic Progress Note Date of Service Oct 28, 2016. Subjective Post OP Day: 1 Reports: feeling well, pain controlled w PO medications, Denies: SOB, calf pain , chest pain, light headedness, nausea / vomiting Additional Notes: Pain at the medial knee at rest and increase pain with flexion of the knee. Overall, feeling better. Objective calves soft nontender, N/V intact, capillary refill less than 2 sec., dressing C /D/I, A&O x3, toes mobile, hemovac drainage (100 cc yesterday and 25 cc today. ) Date Time Temp Pulse Resp B/P Pulse Ox O2 Delivery O2 Flow Rate FiO2 10/28/16 08:48 93 Room Air 10/28/16 08:05 36.9 78 20 137/81 93 Room Air 10/28/16 07:54 Room Air 10/28/16 03:45 36.9 79 16 127/74 91 Room Air 10/27/16 23:20 36.9 93 16 121/65 91 Room Air 10/27/16 20:26 99 120/72 10/27/16 19:34 Room Air 10/27/16 18:52 36.8 99 17 144/78 96 Nasal Cannula 2.0 10/27/16 17:40 36.7 107 18 124/77 96 Nasal Cannula 2.0 10/27/16 16:10 36.7 94 18 122/77 95 Nasal Cannula 2.0 10/27/16 15:43 94 Nasal Cannula 2.0 10/27/16 15:40 36.7 94 18 127/73 95 Nasal Cannula 2.0 10/27/16 15:40 36.7 95 16 146/82 94 Nasal Cannula 2.0 10/27/16 15:40 94 Nasal Cannula 2.0 10/27/16 15:25 97 16 137/94 96 Nasal Cannula 3 10/27/16 15:15 93 16 141/90 96 Nasal Cannula 3 10/27/16 15:05 98 18 124/77 96 Nasal Cannula 3 10/27/16 14:55 37.0 88 14 144/90 97 Nasal Cannula 3 10/27/16 14:45 90 15 129/82 97 Nasal Cannula 3 10/27/16 14:35 84 15 123/82 100 Mask 10 10/27/16 14:25 91 17 140/77 95 Mask 10 10/27/16 14:18 36.6 88 14 102/62 93 Mask 10 Laboratory Results 24 Hours: Test 10/28/16 03:25 Hematocrit 26.7 % Hemoglobin 9.2 g/dL Assessment & Plan Assessment: POD #1 s/p right knee I & D and poly exchange s/p TKA almost 2 weeks out. Plan: Awaiting final cultures. ID recommending Dapto x 6 wks. If insurance dictates, may also use Vanco. Medicine choices based on continued negative cultures. Plan for d/c of the hemovac tomorrow if drainage is nearly 0. Cultures are still pending but Preliminary shows no growth as of now Follow Cx's for now: antibx as per ID Team (1) Post op infection Inhouse Planning Pain Management: Morphine, Oxy IR DVT Prophylaxis: TEDs, SCDs Discharge Planning Discharge Planning: uncertain (Will require 6 wks IV antibiotics. Consent for PICC line done today and PICC line being placed.)
[2016-10-28] MEDS: D5W AND 1/2NSS + 20MEQ KCL 1000 ML IV SCH (12:23)
[2016-10-28] MEDS: VANCOMYCIN INJ 1,750 MG in SODIUM CHLORIDE 0.9% 500ML 500 ML IV SCH ×2 (13:57→23:35)
[2016-10-29] MEDS ORDERED: NURSING DECISION MEDICATION ORDER SCH
[2016-10-29] MEDS: MoRPHine SULFATE CR 15 MG TAB (MS CONTIN) PO SCH ×2 (01:10→13:23)
[2016-10-29] MEDS: OXYCODONE HCL IR 5 MG TAB (IMMEDIATE RELEASE) PO PRN ×4 (05:44→22:19)
[2016-10-29] MEDS: IMIPENEM/CILASTATIN IV 500 MG in DEXTROSE 5% 100ML 100 ML IV SCH ×3 (05:44→18:10)
[2016-10-29 06:31] LABS: CREATININE 0.68 mg/dl (0.60-1.40)
[2016-10-29 07:02] VITALS: BP 126/77; PULSE 79; TEMP 36.8; O2SAT 93
[2016-10-29] MEDS: AMPHETAMINE ASP/SULF/DEXTRAMPH 10 MG TAB PO SCH (08:45)
[2016-10-29] MEDS: FERROUS GLUCONATE 324 MG TAB PO SCH ×3 (08:46→18:10)
[2016-10-29] MEDS: ASPIRIN 81 MG ECTAB PO SCH ×2 (08:46→20:51)
[2016-10-29] MEDS: PANTOprazole SOD 40 MG TAB PO SCH (08:46)
[2016-10-29] MEDS: MULTIVITAMIN TAB PO SCH (08:46)
[2016-10-29] MEDS: ENALAPRIL MALEATE 10 MG TAB PO SCH ×2 (08:46→20:51)
[2016-10-29] MEDS: AMLODIPINE BESYLATE 5 MG TAB PO SCH ×2 (08:46→20:52)
[2016-10-29] MEDS: DESVENLAFAXINE SUCCINATE 50 MG TABCR PO SCH (08:47)
--- NOTE | 2016-10-29 09:57 | Orthopedic Progress Note ---
Orthopedic Progress Note Date of Service Oct 29, 2016. Subjective Post OP Day: 2 Reports: feeling well, pain controlled w PO medications, Denies: calf pain, complaints Objective calves soft nontender, N/V intact, capillary refill less than 2 sec., dressing C /D/I, A&O x3, toes mobile, hemovac drainage (105 yesterday, 5 cc today.) Prevena dressing in place under ESSIE wrap. Functioning well. Hemovac in place. Date Time Temp Pulse Resp B/P Pulse Ox O2 Delivery O2 Flow Rate FiO2 10/29/16 07:02 36.8 79 17 126/77 93 Room Air 10/28/16 23:40 Room Air 10/28/16 23:16 37.1 83 18 131/79 94 Room Air 10/28/16 15:36 36.8 88 20 131/80 93 Room Air 10/28/16 15:30 Room Air 10/28/16 15:02 36.8 88 20 131/80 93 Room Air 10/28/16 11:35 36.8 80 20 133/77 92 Room Air 10/28/16 11:30 36.8 80 20 133/77 92 Room Air Assessment & Plan Assessment: POD #2 s/p right knee I & D and poly exchange s/p TKA almost 2 weeks out. Plan: Awaiting final cultures. ID recommending Dapto x 6 wks. If insurance dictates, may also use Vanco. Medicine choices based on continued negative cultures. Plan for d/c of the hemovac tomorrow if drainage is nearly 0. Cultures are still pending but Preliminary shows no growth as of now Follow Cx's for now: antibx as per ID Team (1) Post op infection Inhouse Planning Pain Management: Morphine, Oxy IR DVT Prophylaxis: TEDs, SCDs Discharge Planning Discharge Planning: uncertain (Will require 6 wks IV antibiotics. PICC line placed yesterday. Possible D/C tomorrow if cultures negative and home IV's set up.)
[2016-10-29] MEDS: VANCOMYCIN INJ 1,750 MG in SODIUM CHLORIDE 0.9% 500ML 500 ML IV SCH ×2 (10:45→19:38)
[2016-10-29 15:15] VITALS: BP 123/80; PULSE 89; TEMP 36.8; O2SAT 95
[2016-10-29 23:08] VITALS: BP 164/82; PULSE 84; TEMP 36.9; O2SAT 94
[2016-10-30] MEDS: IMIPENEM/CILASTATIN IV 500 MG in DEXTROSE 5% 100ML 100 ML IV SCH ×2 (00:16→06:17)
[2016-10-30] MEDS: MoRPHine SULFATE CR 15 MG TAB (MS CONTIN) PO SCH ×2 (01:41→14:01)
[2016-10-30 02:03] VITALS: BP 121/71; PULSE 84; O2SAT 94
[2016-10-30] MEDS ORDERED: VANCOMYCIN TROUGH ONE (05:30)
[2016-10-30] MEDS: VANCOMYCIN INJ 1,750 MG in SODIUM CHLORIDE 0.9% 500ML 500 ML IV SCH (06:17)
[2016-10-30 06:38] LABS: CREATININE 0.79 mg/dl (0.60-1.40)
[2016-10-30 06:58] VITALS: BP 148/84; PULSE 81; TEMP 37.1; O2SAT 94
--- NOTE | 2016-10-30 07:25 | Orthopedic Progress Note ---
Orthopedic Progress Note Date of Service Oct 30, 2016. Subjective Post OP Day: 3 Reports: feeling well, pain controlled w PO medications, Denies: SOB, chest pain , complaints, light headedness, nausea / vomiting Additional Notes: Patient expresses concern about getting home today if possible. He does not want his to be home alone with the snow coming. Objective calves soft nontender, dressing C/D/I, A&O x3, toes mobile Date Time Temp Pulse Resp B/P Pulse Ox O2 Delivery O2 Flow Rate FiO2 10/30/16 06:58 37.1 81 16 148/84 94 Room Air 10/30/16 02:03 84 18 121/71 94 Room Air 10/30/16 00:15 Room Air 10/29/16 23:08 36.9 84 18 164/82 94 Room Air 10/29/16 15:30 Room Air 10/29/16 15:15 36.8 89 17 123/80 95 Room Air 10/29/16 08:00 Room Air Assessment & Plan Assessment: POD #3 s/p right knee I & D and poly exchange s/p TKA almost 2 weeks out. Plan: Awaiting final cultures. ID recommending Dapto x 6 wks. If insurance dictates, may also use Vanco. Medicine choices based on continued negative cultures. Hemovac was D/C. Cultures are still pending but Preliminary shows no growth as of now Follow Cx's for now: antibx as per ID Team (1) Post op infection Inhouse Planning Pain Management: Morphine, Oxy IR DVT Prophylaxis: TEDs, SCDs Discharge Planning Discharge Planning: uncertain (Will require 6 wks IV antibiotics. PICC line placed yesterday. Possible D/C if cultures negative and home IV's set up.)
--- NOTE | 2016-10-30 07:33 | Anesthesiology Progress Note ---
Anesthesia Post Op Note Date & Time Oct 30, 2016 at 07:30 Vital Signs Pain Intensity: 3.0 Vital Signs Past 12 Hours Date Time Temp Pulse Resp B/P Pulse Ox O2 Delivery O2 Flow Rate FiO2 10/30/16 06:58 37.1 81 16 148/84 94 Room Air 10/30/16 02:03 84 18 121/71 94 Room Air 10/30/16 00:15 Room Air 10/29/16 23:08 36.9 84 18 164/82 94 Room Air Notes Mental Status: alert / awake / arousable, participated in evaluation Pt Amnestic to Procedure: Yes Nausea / Vomiting: adequately controlled Pain: adequately controlled Airway Patency, RR, SpO2: stable & adequate BP & HR: stable & adequate Hydration State: stable & adequate Anesthetic Complications: no major complications apparent
[2016-10-30] MEDS: OXYCODONE HCL IR 5 MG TAB (IMMEDIATE RELEASE) PO PRN ×2 (07:47→12:30)
--- NOTE | 2016-10-30 08:16 | Discharge Instructions ---
Discharge Instructions Date of Service Oct 30, 2016. Admission Reason for Admission: Post-Knee Replacement Pain And Swelling/Cellulitis Discharge Discharge Diagnosis / Problem: Cellulitis/ r/o Septic Right TKA Discharge Goals Goal(s): Decrease discomfort, Improve function Activity Recommendations Activity Limitations: per Instructions/Follow-up section Weightbearing Status: Right weightbearing (as tolerated) . Instructions / Follow-Up Instructions / Follow-Up ACTIVITY RECOMMENDATIONS: SELF CARE INSTRUCTIONS AFTER TOTAL KNEE REPLACEMENT A. You may need to continue a physical therapy program after discharge from the hospital. There are several options available to you. Your doctor will assist you in selecting the best one for you. 1. An out-patient facility 2 to 3 times a week for therapy or home therapy. 2. Continue working on all exercises taught to you in the hospital. Your goals should be to increase bending of your knee to 90 degrees and beyond and to fully straighten your knee. 3. Gentle Range of Motion only the right knee. No aggressive PT until seen in the office for your first follow up visit. B. You may progress at your own pace from walking with a walker or crutches to a cane; then to no assistive devices. C. Make walking a part of your daily routine. Be up as much as comfortable with rest periods throughout the day. Rest with leg elevation is very important. Use the ice wrap frequently for the first 3-4 weeks. D. Increase your activity as able. You may ride in a car, shop, participate in nurses assistant and all social activities. E. Wear the long elastic stockings (DARCI hose) 20 hours a day for 2 weeks after surgery. They can be removed several times a day for laundering and for a bath. F. You may shower, no tub baths until cleared by your doctor. SPECIAL CARE INSTRUCTIONS: VERY IMPORTANT TO READ AND REVIEW You will be having lab draws done by the home health services weekly. The results will be sent to Dr Brar from Infectious Dz Dept. Home Health Services will take care of your Picc line and administer the antibiotics for 6 weeks. A. There are a few signs you need to watch for after you are home. Call [facility] if you notice any of the followin. Increased severe knee pain. Some pain is expected especially when you exercise. 2. Increased swelling in your leg or knee; pain or swelling of the calf muscle in either lower leg. 3. Any fluid drainage from the incision. 4. Shortness of breath or chest pain. B. Please call [facility] at if you have any concerns or questions about your operation or recovery. The doctor or his nurse will return your call promptly. C. You must take antibiotics before dental work, bladder, bowel or other surgery. Your doctor will provide you with a permanent care to carry describing this precaution. IMPORTANT: * REMEMBER TO TAKE ASPIRIN, 81 MG, TWICE DAILY FOR 4 WEEKS UNLESS OTHERWISE DIRECTED. THIS IS YOUR BLOOD THINNER. * HIGH RISK PATIENTS MAY BE PRESCRIBED A STRONGER BLOOD THINNER. THIS WILL BE PROVIDED AT DISCHARGE. * CALL IF INCREASED PAIN, REDNESS, DRAINAGE OR FEVER GREATER THAT 101. * WEAR DARCI HOSE 20 HOURS PER DAY FOR 2 WEEKS. * YOU MAY HAVE A LARGE BAND-AID LIKE DRESSING (SILVERON). THIS WILL REMAIN ON YOUR INCISION FOR 7 DAYS, THEN CAN BE REMOVED. IF INCISION IS LEAKING THROUGH DRESSING, CALL THE OFFICE . FOLLOW UP VISIT: If appointment is not already scheduled: Please call [facility] to make a follow-up appointment for 2 weeks after your surgery at . Current Hospital Diet Patient's current hospital diet: Regular Diet Discharge Diet Recommended Diet: Regular Diet Procedures Procedures Performed: Right Knee Irrigation and Debridement and Poly Exchange Pending Studies Studies pending at discharge: no Laboratory Results Hemoglobin A1c Test 09/25/16 14:17 Range/Units Estimated Average Glucose 114 mg/dl Hemoglobin A1c 5.6 4.5-5.6 % Medical Emergencies . Who to Call and When: Medical Emergencies: If at any time you feel your situation is an emergency, please call 911 immediately. . Non-Emergent Contact Non-Emergency issues call your: Surgeon Call Non-Emergent contact if: temperature is above 101.5, your pain is not controlled, your pain is worsening, wound has increased drainage, wound has increased redness . "Provider Documentation" section prepared by Mac Gimenez. VTE Core Measure Inpt VTE Proph given/why not?: Other Anticoagulation, T.E.D. Stockings, SCD's [place] Drug Monitoring Program Search Results: patient reviewed within database, no issues identified
[2016-10-30] MEDS: AMPHETAMINE ASP/SULF/DEXTRAMPH 10 MG TAB PO SCH (09:00)
[2016-10-30] MEDS: PANTOprazole SOD 40 MG TAB PO SCH (09:06)
[2016-10-30] MEDS: DESVENLAFAXINE SUCCINATE 50 MG TABCR PO SCH (09:07)
[2016-10-30] MEDS: ASPIRIN 81 MG ECTAB PO SCH (09:07)
[2016-10-30] MEDS: ENALAPRIL MALEATE 10 MG TAB PO SCH (09:07)
[2016-10-30] MEDS: AMLODIPINE BESYLATE 5 MG TAB PO SCH (09:08)
[2016-10-30] MEDS: MULTIVITAMIN TAB PO SCH (09:08)
[2016-10-30] MEDS: FERROUS GLUCONATE 324 MG TAB PO SCH ×2 (09:08→12:28)
--- NOTE | 2016-10-30 10:09 | Progress Note ---
Subjective Date of Service: Oct 30, 2016. Subjective Pt evaluation today including: conversation w/ patient, physical exam, chart review, lab review doing well, still with some pain but better. no v/c. overall feeling better. all cultures from OR and from aspiration are negative but was on doxy job captain. asking to go home prior to snow. picc placed over weekend. tolerating abx. awaiting insurance approval for dapto. all remaining ros reviewed and are negative. Objective Vital Signs Date Time Temp Pulse Resp B/P Pulse Ox O2 Delivery O2 Flow Rate FiO2 10/30/16 06:58 37.1 81 16 148/84 94 Room Air 10/30/16 02:03 84 18 121/71 94 Room Air 10/30/16 00:15 Room Air 10/29/16 23:08 36.9 84 18 164/82 94 Room Air 10/29/16 15:30 Room Air 10/29/16 15:15 36.8 89 17 123/80 95 Room Air Physical Exam General Appearance: WD/WN, no apparent distress Eyes: EOMI Neck: supple Respiratory/Chest: normal breath sounds, no respiratory distress Cardiovascular: no edema Abdomen: soft Extremities: non-tender, normal inspection, no pedal edema Neurologic/Psychiatric: alert, oriented x 3 Skin: normal color Comments: knee with some edema, no erythema, vac in place Laboratory Results Item Value Date Time Gram Stain - Final Resulted 10/27/16 1257 Tissue Knee Right Gram Stain - Final Resulted 10/27/16 1255 Drainage-Deep Knee Right Gram Stain - Final Resulted 10/27/16 1250 Drainage-Deep Knee Right Gram Stain - Final Resulted 10/27/16 1249 Drainage-Deep Knee Right Gram Stain - Final Complete 10/24/16 1222 Joint Fluid/Space (Synovial) Knee Right Last 24 Hours Test 10/30/16 05:35 Creatinine 0.79 mg/dl Est Creatinine Clear Calc Drug Dose 129.5 ml/min Estimated GFR () 115.5 Estimated GFR (Non- 99.7 Vancomycin Level Trough 16.7 mcg/ml Assessment and Plan (1) Post op infection Assessment & Plan: culture negative was on doxy job captain. will stop imipenem, change to dapto so pt can have first dose in house, if approval would suggest 6 weeks iv dapto from time of OR, stop date 12/08, weekly cbc, cmp, esr, cpk while on dapto. can follow with ID in office or wound center if he is to follow there for vac care. ok for d/c from ID standpoint, if dapto not approved, would conitnue with vanco post d/c, in that case will need weekly vanco trough as well.
[2016-10-30] MEDS ORDERED: DAPT500I IV (10:35)
[2016-10-30] MEDS ORDERED: MRPSR15 PO (10:35)
[2016-10-30] MEDS ORDERED: RXC5 PO (10:35)
[2016-10-30] MEDS ORDERED: DAPTOmycin IV 600 MG in SODIUM CHLORIDE 0.9% 50ML 50 ML IV SCH (12:00)
[2016-10-30 14:47] VITALS: BP 148/84; PULSE 81; TEMP 37.1; O2SAT 94
--- NOTE | 2016-11-01 12:00 | DISCHARGE SUMMARY ---
ADMISSION DIAGNOSIS: Post knee placement pain, swelling, cellulitis. DISCHARGE DIAGNOSIS: Cellulitis, rule out septic right total knee arthroplasty. CONSULTS: Infectious Disease, Shazia Brar. PROCEDURES: On 10/27/2016 the patient underwent a right knee irrigation and debridement and poly exchange. HISTORY OF PRESENT ILLNESS: The patient is a 56-year-old male who underwent a right TKA on 10/13/2016. Suddenly following a week after surgery, he had increasing pain and swelling with low grade fevers. Examination of the knee would at that time was relevantly benign. A Doppler was obtained and was normal. Chest x-ray was normal. White blood cell count was mildly elevated at 11. He was placed on doxycycline. He continued to have pain and swelling of the right knee and continues to have temperatures. He was reevaluated and showed some increased erythema on the incision line consistent with cellulitis. Aspiration was obtained, which demonstrated serosanguineous fluid. HE HAD AN ALLERGY TO PENICILLIN WELL SULFA. Given the lack of response to p.o. antibiotics, he was admitted for IV antibiotics and treatment of the cellulitis. HOSPITAL COURSE: Infectious disease team was consulted. Gram stains were negative literally and were pending results for further antibiotic followup. The patient was starting to feel better with difficulty extending his knee without pain and did notice that the redness had decreased. The patient was scheduled for a washout on 10/27/2016 as well as a poly exchange. Postop day #1 from irrigation and drainage and poly exchange. He was feeling well, pain was controlled with p.o. medications. He denied shortness of breath, chest pain, lightheadedness, nausea or vomiting. Hemovac drainage was 100 mL. We are awaiting final cultures. Infectious disease recommended Dapto for 6 weeks, if insurance do not cover vancomycin would be used. Cultures as of postop day #1, preliminary showed no growth. Postop day #2, the patient was feeling well, pain was controlled with p.o. medications. Hemovac drainage was 5 mL. Discontinuation of his drainage would be done postop day #3 as long as there was minimal drainage. Cultures were still awaiting. His discharge was uncertain. PICC line will be placed. Postop day #3, the patient was feeling well, pain was controlled with p.o. medications. Hemovac drain was pulled. Cultures showed no growth. With the PICC line in place, the patient was offered home health to assist with a PICC line. DISCHARGE CONDITION: Stable. DISPOSITION: Home with home health services. MEDICATIONS: Daptomycin 600 mg IV daily for 42 days, morphine sulfate 15 mg by mouth every 12 hours for 20 days, acetaminophen 1000 mg by mouth every 8 hours, Lotrel 2 tablets by mouth daily in the morning, Adderall 20 mg by mouth daily in the morning, aspirin 81 mg by mouth twice a day, Pristiq 50 mg by mouth daily in the morning, Zofran 8 mg by mouth every 8 hours as needed for nausea, oxycodone 5-10 mg by mouth every 4 hours as needed for pain. INSTRUCTIONS: The patient is to weightbear as tolerated on his right lower extremity. He was given a Prevena drain that was supposed to stay on for 7 days. He is to wear long elastic stockings 20 hours a day for 2 weeks after surgery. He is to start Physical Therapy 2-3 times a week. He is to have a regular diet. He is to call [facility] if he notices increasing pain or swelling of the knee, increased drainage from the incision site, any shortness of breath or chest pain. FOLLOWUP: He will followup 2 weeks after surgery with Dr. Beth or his PA. ELIZABETH
== END 2016-10-30 15:13 | disposition home health service (06) | DRG 486 ==
LOC: C.MSW 13:29
PROVIDERS: ADMIT Orthopaedic Surgery; ATTEND Orthopaedic Surgery
PROC: 0SPC09Z Removal of Liner from Right Knee Joint, Open Approach (ICD-10-PCS; 2016-10-27)
PROC: 0S9C0ZZ Drainage of Right Knee Joint, Open Approach (ICD-10-PCS; 2016-10-27)
PROC: 0SUV09Z Supplement Right Knee Joint, Tibial Surface with Liner, Open Approach (ICD-10-PCS; principal; 2016-10-27 13:00)
PROC: 02HV33Z Insertion of Infusion Device into Superior Vena Cava, Percutaneous Approach (ICD-10-PCS; 2016-10-28)
DX: T84.53XA Infection and inflammatory reaction due to internal right knee prosthesis, initial encounter (principal); L03.115 Cellulitis of right lower limb; Z96.651 Presence of right artificial knee joint; I10 Essential (primary) hypertension; G47.30 Sleep apnea, unspecified; F41.9 Anxiety disorder, unspecified; M19.90 Unspecified osteoarthritis, unspecified site; Z79.899 Other long term (current) drug therapy; Y83.1 Surgical operation with implant of artificial internal device as the cause of abnormal reaction of the patient, or of later complication, without mention of misadventure at the time of the procedure; Z88.0 Allergy status to penicillin; Z88.2 Allergy status to sulfonamides; Z88.8 Allergy status to other drugs, medicaments and biological substances

== ENCOUNTER → 2016-11-23 | Outpatient (CLI) | payer OTHER ==
[~2016-11-23] MED LIST changes: +DAPT500I IV; +MRPSR15 PO; -OXYSR10 PO
--- NOTE | 2016-11-23 11:10 | DIAGNOSTIC IMAGING REPORT ---
CHEST 2 VIEWS ROUTINE HISTORY: Assess for interstitial pneumonitis. 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 FINDINGS: The lungs are clear. Cardiac silhouette is normal in size. No pleural effusions. No pneumothorax. The right PICC terminates in the SVC. No abnormal interstitial thickening. IMPRESSION: No acute process. The right PICC terminates in the SVC. Electronically signed by: Kurtis Landin M.D. 11/23/2016 11:08 AM Dictated Date/Time: 11/23/2016 11:06 AM
[2016-11-23 12:19] LABS: BASO % 0.6 %; BASO ABS # 0.04 K/uL (0-0.2); COMPLETE YES; EOS % 6.7 %; HEMATOCRIT 35.5 % (42-52); IG% 0.3 %; LYMPH % 24.7 %; LYMPH ABS # 1.77 K/uL (1.2-3.4); MEAN CELL VOLUME 85.3 fL (80-100); MEAN CORPUSCULAR HEMOGLOBIN 28.4 pg (25-34); MEAN CORPUSCULAR HGB CONC 33.2 g/dl (32-36); MONO % 7.8 %; NEUT % 59.9 %; PLATELET COUNT 375 K/uL (130-400); RED BLOOD COUNT 4.16 M/uL (4.7-6.1); WHITE BLOOD COUNT 7.18 K/uL (4.8-10.8)
[2016-11-23 13:08] LABS: ALT/SGPT 32 U/L (12-78); AST/SGOT 19 U/L (15-37); BLOOD UREA NITROGEN 15 mg/dl (7-18); BUN/CREATININE RATIO 11.6 (10-20); CALCIUM 9.5 mg/dl (8.5-10.1); CARBON DIOXIDE 30 mmol/L (21-32); CHLORIDE 103 mmol/L (98-107); GLUCOSE 93 mg/dl (70-99); POTASSIUM 3.4 mmol/L (3.5-5.1); SODIUM 141 mmol/L (136-145)
[2016-11-23 13:11] LABS: ALB/GLOB RATIO 1.1 (0.9-2); ALKALINE PHOSPHATASE 78 U/L (45-117)
[2016-11-28 11:02] LABS: 18KDIGG BAND NONREACTIVE (NONREACTIVE); 23KDIGG BAND NONREACTIVE (NONREACTIVE); 23KDIGM BAND NONREACTIVE (NONREACTIVE); 28KDIGG BAND NONREACTIVE (NONREACTIVE); 30KDIGG BAND NONREACTIVE (NONREACTIVE); 39KDIGG BAND NONREACTIVE (NONREACTIVE); 39KDIGM BAND NONREACTIVE (NONREACTIVE); 41KDIGG BAND REACTIVE (NONREACTIVE); 41KDIGM BAND NONREACTIVE (NONREACTIVE); 45KDIGG BAND NONREACTIVE (NONREACTIVE); 58KDIGG BAND NONREACTIVE (NONREACTIVE); 66KDIGG BAND NONREACTIVE (NONREACTIVE); 93KDIGG BAND NONREACTIVE (NONREACTIVE)
== END | disposition home or self-care (01) ==
LOC: C.RAD1850 10:31
PROVIDERS: ATTEND Internal Medicine Infectious Disease
DX: T84.53XA Infection and inflammatory reaction due to internal right knee prosthesis, initial encounter (principal); Y83.1 Surgical operation with implant of artificial internal device as the cause of abnormal reaction of the patient, or of later complication, without mention of misadventure at the time of the procedure

== ENCOUNTER → 2016-12-05 | Outpatient (CLI) | payer OTHER ==
[2016-12-05 10:15] LABS: BASO % 0.7 %; BASO ABS # 0.04 K/uL (0-0.2); COMPLETE YES; EOS % 6.4 %; HEMATOCRIT 35.9 % (42-52); IG% 0.2 %; LYMPH % 26.6 %; LYMPH ABS # 1.63 K/uL (1.2-3.4); MEAN CELL VOLUME 84.7 fL (80-100); MEAN CORPUSCULAR HEMOGLOBIN 28.8 pg (25-34); MEAN PLATELET VOLUME 10.1 fL (7.4-10.4); NEUT % 58.1 %; PLATELET COUNT 349 K/uL (130-400); RED BLOOD COUNT 4.24 M/uL (4.7-6.1); WHITE BLOOD COUNT 6.13 K/uL (4.8-10.8)
[2016-12-05 10:56] LABS: ALT/SGPT 21 U/L (12-78); AST/SGOT 15 U/L (15-37); BLOOD UREA NITROGEN 21 mg/dl (7-18); BUN/CREATININE RATIO 17.4 (10-20); CARBON DIOXIDE 30 mmol/L (21-32); CHLORIDE 104 mmol/L (98-107); GLUCOSE 106 mg/dl (70-99); POTASSIUM 3.6 mmol/L (3.5-5.1); SODIUM 140 mmol/L (136-145)
[2016-12-05 10:59] LABS: ALB/GLOB RATIO 1.1 (0.9-2); ALKALINE PHOSPHATASE 71 U/L (45-117)
== END | disposition home or self-care (01) ==
LOC: C.LAB1850 08:54
PROVIDERS: ATTEND Internal Medicine Infectious Disease
DX: T84.53XA Infection and inflammatory reaction due to internal right knee prosthesis, initial encounter (principal); Y83.1 Surgical operation with implant of artificial internal device as the cause of abnormal reaction of the patient, or of later complication, without mention of misadventure at the time of the procedure

== ENCOUNTER 2019-06-26 06:40 | Inpatient (IN) ==
--- NOTE | 2019-05-28 12:57 | PAT Medication Instructions ---
Medication Instructions Date of Service May 28, 2019 Home Medications B-complex with vitamin C [Super B Complex-Vitamin C] 1 tab PO BID Hydrochlorothiazide 1 dose PO QAM Potassium 1 dose PO BID Vitamin D 1 dose PO DAILY amlodipine-benazepril 1 cap PO BID aspirin [Aspir-81] 81 mg PO QAM desvenlafaxine succinate [Pristiq] 50 mg PO QAM One-A-Day Men's Multivitamin] 1 tab PO DAILY DO NOT take the morning of surgery B-complex with vitamin C [Super B Complex-Vitamin C] 1 tab PO BID Hydrochlorothiazide 1 dose PO QAM Potassium 1 dose PO BID Vitamin D 1 dose PO DAILY amlodipine-benazepril 1 cap PO BID One-A-Day Men's Multivitamin] 1 tab PO DAILY Take morning of surgery With a small sip of water, OTHERWISE NOTHING TO EAT OR DRINK AFTER MIDNIGHT:D aspirin [Aspir-81] 81 mg PO QAM desvenlafaxine succinate [Pristiq] 50 mg PO QAM Other Notes If you have any questions please call us at [phone] or [phone] or [phone] or [phone]
--- NOTE | 2019-05-29 12:35 | Anesthesiology Consultation ---
Date of Service May 29, 2019 Assessment & Plan (1) Encounter for pre-operative examination: - Awaiting review preop testing (labs, EKG, CXR). - Awaiting surgeon-ordered PCP preop evaluation (Dr. Weaver; [facility]) and cardiology preop evaluation (Terry Santos; [facility]). Chart Review Chart Review: Patient seen in Pre Admission Testing Teaching & Discussion Pre-Anesthesia Teaching/Discussion Notes: Instructed NPO after midnight before surgery,except medications with 15 cc of water. Medication instructions provided according to the PAT guidelines. History Surgery Operation Date: 06/26/19 12:25 Proposed Procedures p Left Total Knee Arthroplasty - Isaiah Beth MD Height/Weight Height: 6 ft 1 in Weight: 107.6 kg Allergies Allergy/AdvReac Type Severity Reaction Status Date / Time bupropion Allergy Unknown HIVES Verified 05/21/19 15:32 Penicillins Allergy Unknown CHILDHOOD; Verified 05/29/19 12:29 UNKNOWN REACTION Sulfa (Sulfonamide Allergy Unknown SYSTEMIC Verified 05/21/19 15:32 Antibiotics) SWELLING lactose AdvReac Unknown GI UPSET Verified 05/29/19 12:29 sulfite AdvReac Unknown HEADACHE/DI Verified 05/29/19 12:29 ARRHEA ANTIBIOTIC AdvReac Unknown FLU LIKE Uncoded 05/29/19 12:50 SYMPTOMS, SEE NOTES BELOW Medications Home Medications Medication Instructions Recorded Confirmed Last Taken B-complex with vitamin C [Super B 1 tab PO BID 05/21/19 05/21/19 Unknown Complex-Vitamin C] Hydrochlorothiazide 1 dose PO QAM 05/21/19 05/21/19 Unknown Potassium 1 dose PO BID 05/21/19 05/21/19 Unknown Vitamin D 1 dose PO DAILY 05/21/19 05/21/19 Unknown amlodipine-benazepril 1 cap PO BID 05/21/19 05/21/19 05/21/19 aspirin [Aspir-81] 81 mg PO QAM 05/21/19 05/21/19 05/21/19 desvenlafaxine succinate [Pristiq] 50 mg PO QAM 05/21/19 05/21/19 05/21/19 ptnreher-xnu-hlwng-vit K-lycop 1 tab PO DAILY 05/21/19 05/21/19 Unknown [One-A-Day Men's Multivitamin] Past Medical History Medical History Anxiety Hypertension Neck problem neck "soreness" x months Sleep apnea CPAP Exercise / Class Metabolic Activity II 4-5 Yardwork/Stairs/Walk up hill Past Family History Family History Father Family history of aortic aneurysm Grandfather Family history of aortic aneurysm Past Surgical History Surgical History History of arthroscopic knee surgery RIGHT History of colonoscopy History of foot surgery LEFT History of total right knee replacement post-op infection s/p surgery/abx via PICC line (was on doxy x 8 months)- surgeon aware Past Anesthesia History No Hx of Anesthesia Complications (except PONV) and No Family Hx of Anesthesia Complications History of PONV No Hx of Motion Sickness and History of PONV (possibly related to pain medication*) Social History Smoking Status: Never smoker Do You Dip or Chew Tobacco: No Hx Alcohol Use: Yes Alcohol type: wine and hard liquor alcohol intake frequency: a few times a week Hx Substance Use: No substance use type: does not use Review of Systems Patient denies chest pain, shortness of breath, dyspnea on exertion, cough, wheezing, palpitations. Physical Exam Vital Signs VITALS BP 149/82 P 86 TEMP 97.5 SP02 95%RA RESP 16 PHYSICAL Full neck and c-spine range of motion. Full TMJ range of motion. TMD 3 finger breaths Mallampati Score 3 Dentition: intact, upper right side implant, inlay on sides/molars Lungs: clear throughout to auscultation Cardiac: regular rate and rhythm, no murmurs noted Spine: normal Carotid arteries: negative bruit Extremities: no edema Trimmed alcantar Testing Laboratory Results 05/15/19 SODIUM 140 POTASSIUM 3.8 CHLORIDE 102 CO2 26 BUN 16 CREATININE 1.0 GLUCOSE 100 Stress Test Date: 02/21/18 Type: exercise Stress ECHO/EKG negative for inducible ischemia. Grade I DD. LVEF 55-59%. Mild MR. Mildly cLV wall thickness increased. RBBB at rest. 90% MPHR. 10 METS.
--- NOTE | 2019-05-29 13:09 | XRay Report ---
XR chest Pre-admission PA/Lat CLINICAL HISTORY: Preoperative chest COMPARISON STUDY: No previous studies for comparison. FINDINGS: The cardiac and mediastinal contours are normal. There is no evidence of focal pulmonary co nsolidation. There is no evidence of failure. No pleural effusions are visualized.[ There is minimal left basilar atelectasis/scarring. IMPRESSION: No active disease in the chest. Electronically signed by: Federico Car M.D. 05/29/2019 1:07 PM
[2019-05-29 14:57] LABS: Basophils # (auto) 0.02 K/uL (0-0.2); Basophils % (auto) 0.3 %; Eosinophils # (auto) 0.16 K/uL (0-0.5); Eosinophils % (auto) 2.6 %; Hematocrit (blood only) 42.1 % (42-52); Immature Granulocytes # (auto) 0.01 K/uL (0.00-0.02); Immature Granulocytes % (auto) 0.2 %; Lymphocytes # (auto) 2.07 K/uL (1.2-3.4); Lymphocytes % (auto) 33.2 %; Mean Corpuscular Hemoglobin 31.2 pg (25-34); Mean Corpuscular Hgb Conc 35.6 g/dL (32-36); Mean Corpuscular Volume 87.5 fL (80-100); Mean Platelet Volume 10.5 fL (7.4-10.4); Monocytes # (auto) 0.34 K/uL (0.11-0.59); Monocytes % (auto) 5.4 %; Neutrophils # (auto) 3.64 K/uL (1.4-6.5); Neutrophils % (auto) 58.3 %; Platelet Count 288 K/uL (130-400); RDW Coefficient of Variation 13.4 % (11.5-14.5); RDW Standard Deviation 43.1 fL (36.4-46.3); Red Blood Count 4.81 M/uL (4.7-6.1); White Blood Count 6.24 K/uL (4.8-10.8)
[2019-05-29 15:09] LABS: Partial Thromboplastin Time 27.1 Seconds (21.0-31.0); Prothrombin Time 10.1 Seconds (9.0-12.0)
[2019-05-29 15:22] LABS: Appearance Urine Cloudy (Clear); Bacteria Urine Automated Negative (Negative); Bilirubin Urine Negative (Negative); Blood Urine Negative (Negative); Cast Urine Automated 0 /lpf (0-5); Color Urine Dark Yellow; Epithelial Cell Urine Auto 0-5 /lpf (0-5); Glucose Urine UA Negative (Negative); Ketones Urine Negative (Negative); Leukocyte Esterase Urine Negative (Negative); Nitrite Urine Negative (Negative); Protein Urine Negative (Negative); RBC Urine Automated 0-4 /hpf (0-4); Specific Gravity Urine 1.016 (1.000-1.030); Urobilinogen Urine Negative (Negative); pH Urine 7.5 (4.5-7.5)
[2019-05-30 06:31] LABS: Estimated Average Glucose 114 mg/dl; Hemoglobin A1C 5.6 % (4.5-5.6)
--- NOTE | 2019-06-13 13:40 | History & Physical Report ---
Date of Service June 13, 2019 Assessment & Plan (1) Primary osteoarthritis of left knee: Treatment options discussed. He has failed conservative therapy as above. Risks, benefits and alternatives to surgery including but not limited to infection, DVT, pain, stiffness, need for revision surgery, damage to blood vessels, damage to nerves, PE, , were discussed with the patient and they wish to proceed. Plan will be for left total knee arthroplasty. Will plan on aspirin 81mg BID x 30 days post operatively for DVT prophylaxis, as well as Cefadroxil 500mg BID x 30 days post operatively for antibiotic prophylaxis given history of post op infection following his right knee replacement. Will also plan on no hemovac drain post op with him. Will plan on home health PT post discharge from the hospital. All questions answered. Surgery scheduled for 06/26/19 at [facility]. F/u post operatively. History of Present Illness Chief Complaint: Left knee pain Primary Care Provider: Isaiah Kerr MD Patient is a 59 year old male with PMHx significant for HTN, HUDSON, and anxiety who presents with chronic left knee pain. Previously has had right knee replacement with good relief of his right knee pain. He has failed conservative measures including injections and antiinflammatories. Pain is affecting his daily life. He would like to proceed with left knee replacement. Patient denies headaches, sweats, fevers, chills, double vision, blurred vision, cough, sore throat, dysphagia, chest pain, sob, wheezing, n/v/d/c, numbness, tingling, fatigue, urinary symptoms, mood disorders. ROS positive for left knee pain and stiffness. Allergies Allergy/AdvReac Type Severity Reaction Status Date / Time bupropion Allergy Unknown HIVES Verified 05/21/19 15:32 Penicillins Allergy Unknown CHILDHOOD; Verified 05/29/19 12:29 UNKNOWN REACTION Sulfa (Sulfonamide Allergy Unknown SYSTEMIC Verified 05/21/19 15:32 Antibiotics) SWELLING lactose AdvReac Unknown GI UPSET Verified 05/29/19 12:29 sulfite AdvReac Unknown HEADACHE/DI Verified 05/29/19 12:29 ARRHEA ANTIBIOTIC AdvReac Unknown FLU LIKE Uncoded 05/29/19 12:50 SYMPTOMS, SEE NOTES BELOW Home Medications Home Medications Medication Instructions Recorded Confirmed Type B-complex with vitamin C [Super B 1 tab PO BID 05/21/19 05/21/19 History Complex-Vitamin C] Hydrochlorothiazide 1 dose PO QAM 05/21/19 05/21/19 History Potassium 1 dose PO BID 05/21/19 05/21/19 History Vitamin D 1 dose PO DAILY 05/21/19 05/21/19 History amlodipine-benazepril 1 cap PO BID 05/21/19 05/21/19 History aspirin [Aspir-81] 81 mg PO QAM 05/21/19 05/21/19 History desvenlafaxine succinate [Pristiq] 50 mg PO QAM 05/21/19 05/21/19 History vfqlgigt-uux-fpnrq-vit K-lycop 1 tab PO DAILY 05/21/19 05/21/19 History [One-A-Day Men's Multivitamin] Past Med/Surg History Medical History Anxiety Hypertension Neck problem neck "soreness" x months Sleep apnea CPAP Surgical History History of arthroscopic knee surgery RIGHT History of colonoscopy History of foot surgery LEFT History of total right knee replacement post-op infection s/p surgery/abx via PICC line (was on doxy x 8 months)- surgeon aware Family History Father Family history of aortic aneurysm Grandfather Family history of aortic aneurysm Social History Preferred Language: [place] Islander Communication Ability: Effective Weaver Wire Loom Required: No Beliefs That Will Affect Care: None Current Living Situation: Spouse Other Information That Helps Us Care for You: No Feels Safe at Home: Yes Smoking Status: Never smoker Do You Dip or Chew Tobacco: No ; Hx Alcohol Use: Yes Alcohol type: wine and hard liquor Hx Substance Use: No Review of Systems All systems reviewed & are unremarkable except as noted in HPI & below Physical Exam Constitutional: well developed and well nourished; no acute distress Eyes: PERRL, conjunctivae normal, anicteric sclerae ENMT: external ear and nose normal, oropharynx normal Neck: trachea midline, no thyromegaly Respiratory: normal respiratory effort, lungs clear to auscultation Cardiovascular: RRR, no murmur, no edema Musculoskeletal: Left knee-Mild varus deformity, tenderness medial joint line. Mild effusion with ROM 0-130. Crepitus with ROM. Stable to valgus and varus stress Skin: no rashes, warm and dry Neurologic: patellar DTR's 2+ bilat, sensation intact Psychiatric: A+Ox3, euthymic affect Results & Data Laboratory Results Lab Results 05/29/19 05/29/19 05/29/19 Range/Units 12:40 12:40 12:40 WBC 6.24 (4.8-10.8) K/uL RBC 4.81 (4.7-6.1) M/uL Hgb 15.0 (14.0-18.0) g/dL Hct 42.1 (42-52) % MCV 87.5 (80-100) fL MCH 31.2 (25-34) pg MCHC 35.6 (32-36) g/dL RDW Std Deviation 43.1 (36.4-46.3) fL RDW Coeff of Alex 13.4 (11.5-14.5) % Plt Count 288 (130-400) K/uL MPV 10.5 H (7.4-10.4) fL Immature Gran % (Auto) 0.2 % Neut % (Auto) 58.3 % Lymph % (Auto) 33.2 % Glenn % (Auto) 5.4 % Eos % (Auto) 2.6 % Baso % (Auto) 0.3 % Immature Gran # (Auto) 0.01 (0.00-0.02) K/uL Neut # (Auto) 3.64 (1.4-6.5) K/uL Lymph # (Auto) 2.07 (1.2-3.4) K/uL Glenn # (Auto) 0.34 (0.11-0.59) K/uL Eos # (Auto) 0.16 (0-0.5) K/uL Baso # (Auto) 0.02 (0-0.2) K/uL PT 10.1 (9.0-12.0) Seconds INR 1.0 (0.9-1.1) APTT 27.1 (21.0-31.0) Seconds PTT Ratio 1.0 Estimat Average Glucose mg/dl Hemoglobin A1c (4.5-5.6) % Albumin 3.8 (3.4-5.0) gm/dl Urine Color Urine Appearance (Clear) Urine pH (4.5-7.5) Ur Specific [place] (1.000-1.030) Urine Protein (Negative) Urine Glucose (UA) (Negative) Urine Ketones (Negative) Urine Blood (Negative) Urine Nitrite (Negative) Urine Bilirubin (Negative) Urine Urobilinogen (Negative) Ur Leukocyte Esterase (Negative) Urine WBC (Auto) (0-5) /hpf Urine RBC (Auto) (0-4) /hpf U Hyaline Cast (Auto) (0-5) /lpf U Epithel Cells (Auto) (0-5) /lpf Urine Bacteria (Auto) (Negative) Blood Type Antibody Screen 05/29/19 05/29/19 05/29/19 Range/Units 12:40 12:40 12:40 WBC (4.8-10.8) K/uL RBC (4.7-6.1) M/uL Hgb (14.0-18.0) g/dL Hct (42-52) % MCV (80-100) fL MCH (25-34) pg MCHC (32-36) g/dL RDW Std Deviation (36.4-46.3) fL RDW Coeff of Alex (11.5-14.5) % Plt Count (130-400) K/uL MPV (7.4-10.4) fL Immature Gran % (Auto) % Neut % (Auto) % Lymph % (Auto) % Glenn % (Auto) % Eos % (Auto) % Baso % (Auto) % Immature Gran # (Auto) (0.00-0.02) K/uL Neut # (Auto) (1.4-6.5) K/uL Lymph # (Auto) (1.2-3.4) K/uL Glenn # (Auto) (0.11-0.59) K/uL Eos # (Auto) (0-0.5) K/uL Baso # (Auto) (0-0.2) K/uL PT (9.0-12.0) Seconds INR (0.9-1.1) APTT (21.0-31.0) Seconds PTT Ratio Estimat Average Glucose 114 mg/dl Hemoglobin A1c 5.6 (4.5-5.6) % Albumin (3.4-5.0) gm/dl Urine Color Dark Yellow Urine Appearance Cloudy A (Clear) Urine pH 7.5 (4.5-7.5) Ur Specific [place] 1.016 (1.000-1.030) Urine Protein Negative (Negative) Urine Glucose (UA) Negative (Negative) Urine Ketones Negative (Negative) Urine Blood Negative (Negative) Urine Nitrite Negative (Negative) Urine Bilirubin Negative (Negative) Urine Urobilinogen Negative (Negative) Ur Leukocyte Esterase Negative (Negative) Urine WBC (Auto) 1-5 (0-5) /hpf Urine RBC (Auto) 0-4 (0-4) /hpf U Hyaline Cast (Auto) 0 (0-5) /lpf U Epithel Cells (Auto) 0-5 (0-5) /lpf Urine Bacteria (Auto) Negative (Negative) Blood Type O Positive Antibody Screen NEGATIVE Diagnostic Findings Left knee radiographs: [id number]-[id number] medial compartment with osteophyte formation off the medial femoral condyle and medial tibial plateau. Arthritic changes in all compartments.
[~2019-06-26 06:40] MED LIST changes: -ACET-1138 PO; +ACETAMINOPHEN 500 MG TAB PO SCH; -AMLO5CAP2 PO; -AMPH20TA2 PO; -ASPEC81 PO; -CLC100 PO; +CLINDAMYCIN 600 MG/54 ML BAG IV SCH; +CeleBREX 200 MG CAP PO SCH; -DAPT500I IV; -DESV50TA PO; +FAMOTIDINE 20 MG TAB PO SCH; +GABAPENTIN 600 MG DOSE PO SCH; +LR 500ML BOLUS, THEN 15ML/HR IV SCH; +METOCLOPRAMIDE HCL 10 MG TABLET PO SCH; -MRPSR15 PO; -MULT-1027 PO; -ONDA8TAB6 PO; +ROPIVACAINE 0.5% HCL/PF 150 MG, BUPIVACAINE 0.5% MPF 30 ML, EPINEPHrine 30MG/30ML (OR U... INFIL SCH; -RXC5 PO; +TRANEXAMIC ACID 1,000 MG **IV Intra-op IV SCH; +TRANEXAMIC ACID 1,000 MG **IV Pre-op IV SCH; +VANCOMYCIN HCL 1,000 MG/270 ML BAG IV SCH; +dexAMETHasone 4 MG TAB PO SCH
[2019-06-26] MEDS ORDERED: BUPIVACAINE 0.5 % 5 MG/1 ML PF 10ML VIAL ONE (06:55)
--- NOTE | 2019-06-26 07:26 | History & Physical Bridge Note ---
Date of Service June 26, 2019 History & Physical Bridge Note I have examined the patient, reviewed the History & Physical and in the interval since the performance of the History & Physical I have noted the following changes of clinical significance: no changes noted
[2019-06-26] MEDS ORDERED: ONDANSETRON INJ 2 MG/ML 2 ML VIAL IV PRN ×2 (07:32→11:02)
[2019-06-26] MEDS ORDERED: ATROPINE SULFATE 0.1 MG/ML 10ML SYR IV PRN (07:32)
[2019-06-26] MEDS ORDERED: ePHEDrine sulfate 50 MG/ML AMP IV PRN (07:32)
[2019-06-26] MEDS ORDERED: fentaNYL citrate 100 MCG/2 ML VIAL IV PRN (07:32)
[2019-06-26] MEDS ORDERED: MIDAZOLAM HCL 1 MG/ML 2ML VIAL ONE ×2 (07:41)
[2019-06-26] MEDS ORDERED: BACITRACIN INJ 50,000 UNIT VIAL ONE (08:03)
[2019-06-26] MEDS ORDERED: LIDOCAINE HCL 2% 2 ML VIAL/AMP(20MG/ML) INFIL ONE (09:15)
[2019-06-26] MEDS ORDERED: PROPOFOL IV EMULSION 10 MG/ML 20 ML VIAL IV ONE (09:15)
[2019-06-26] MEDS ORDERED: ONDANSETRON INJ 2 MG/ML 2 ML VIAL ONE (09:16)
--- NOTE | 2019-06-26 09:39 | Operative Report ---
Post Operative Report Pre & Post Diagnosis Operation Date: 06/26/19 08:15 Pre-Op Diagnosis: LEFT KNEE OSTEOARTHRITIS Post-Op Diagnosis: LEFT KNEE OSTEOARTHRITIS I identified the patient and participated in the time-out.: Yes Procedure Operation Date: 06/26/19 08:15 Actual Procedures p Left Total Knee Arthroplasty(Left) - Isaiah Beth MD Surgeon Isaiah Beth MD Hot Air Furnace Installer Repairer Dwayne Phelan PA-C Estimated Blood Loss 20 Findings Consistent with Post-Op Diagnosis Specimens Bone and tissue Drains None Anesthesia Type MAC Spinal Regional Complications none Disposition Accompanied Patient To Recovery: Yes Disposition: Recovery Room Indications The patient is a 59-year-old male long-standing arthritic change in the left knee. He has [id number] medial compartment osteophyte formation of the medial femoral condyle medial tibial plateau with arthritic change in the other 2 compartments. He has failed conservative measures including injection, anti- inflammatories and rehab. He wishes to proceed with left total knee arthroplasty. Description of Procedure Risks benefits and alternatives of surgery including but not limited to infection, DVT, pain, stiffness, need for surgery, damage to blood vessels, damage to nerves or risks of anesthesia were discussed with the patient and they wished to proceed. The patient was identified and the laterality was confirmed and marked. They received a preoperative antibiotic as well as a spinal anesthetic and an abductor canal block. A well-padded tourniquet was applied and then the limb was prepped and draped in standard manner with ChloraPrep. The limb was exsanguinated and the tourniquet was inflated. I made a standard anterior incision. I sharply incised the skin then utilized Bovie electrocautery to achieve hemostasis. I made a medial parapatellar arthrotomy and mobilized the patella laterally. I then excised the anterior horns of the medial and lateral meniscus as well as the infrapatellar fat pad. I elevated a portion of the MCL off of the tibia. I then pinned into place a patient-matched distal femoral cutting guide and made my distal femoral resection. I then pinned into place the 5 in 1 femoral cutting guide. I made my anterior, posterior and chamfer cuts. I then excised the cruciates and the remaining portions of the menisci. I then pinned into place a patient- matched tibial cutting guide and made my tibial resection. I then pinned into place the tibial plate a utilizing alignment ron to confirm rotation. I then cut for the post. Utilizing a lamina wrap yarn sorter and I then removed posterior osteophytes off the femur. I then placed a trial femur into position and cut for the trochlear component. I then sequentially trialed to size the polyethylene until there was good soft tissue balancing and range of motion. I then prepared the patella with a freehand cut utilizing sagittal saw. I sized and drilled for the patella. There was good tracking to the patella no lateral release was needed. All the trial components were removed. The deep tissues were anesthetized with an ortho mix solution. Then with Simplex HV with gentamicin cement, I cemented my definitive components. Definitive components, Trejo and Nephew Tyraney 2: Femur 7 Tibia 6 Poly 9 Patella 38 oval A betadine soak was performed. The arthrotomy was closed with interrupted #1 Vicryl suture subcutaneous tissue was closed with interrupted 2-0 Vicryl suture. The skin was closed with with jose. An Acticoat and Marleny dressing were placed. Sterile dressings were applied. All needle and sponge counts were correct at the end of the procedure patient was transferred to the PACU in stable condition without apparent complication. The PA-C was necessary for assistance with procedure for assistance in positioning, prepping, draping, retraction and closure. I attest to the content of the Intraoperative Record and any orders documented therein. Any exceptions are noted below.
--- NOTE | 2019-06-26 10:33 | XRay Report ---
XR knee LT 1 or 2V routine CLINICAL HISTORY: 59 years-old Male presenting with Surgical Post Op. TECHNIQUE: Frontal and crosstable lateral views of the left knee were obtained. COMPARISON: 11/09/2016. FINDINGS: There has been interval total left knee arthroplasty with patellar resurfacing. Expected intra-articu lar and soft tissue emphysema. Overlying skin jose in place. No periprosthetic lucency or fracture . No malalignment. IMPRESSION: Expected postsurgical appearance status post total left knee arthroplasty with patellar resurfacing. Electronically signed by: Isaiah Celestin M.D. 06/26/2019 10:32 AM
[2019-06-26] MEDS ORDERED: METOCLOPRAMIDE HCL INJ 5 MG/ML 2 ML VIAL IV PRN (11:02)
[2019-06-26] MEDS ORDERED: OXYCODONE HCL IR 5 MG TAB (IMMEDIATE RELEASE) PO PRN (11:02)
[2019-06-26] MEDS ORDERED: TAMSULOSIN HCL 0.4 MG CAP PO PRN (11:02)
[2019-06-26] MEDS ORDERED: NALOXONE HCL 0.4 MG/1 ML VIAL/CARP IV PRN (11:02)
[2019-06-26] MEDS ORDERED: VANCOMYCIN CONSULT ACTIVE PRN (11:02)
[2019-06-26] MEDS ORDERED: BISACODYL 10 MG SUPP PR PRN (11:02)
[2019-06-26] MEDS ORDERED: HYDROmorphone INJ 0.5 MG/0.5 ML SYR IV PRN (11:02)
[2019-06-26] MEDS ORDERED: MAGNESIUM HYDROXIDE SUSP 30 ML UDC PO PRN (11:02)
--- NOTE | 2019-06-26 11:17 | Anesthesiology Progress Note ---
Date of Service June 26, 2019 Anesthesia Post Procedure Vital Signs Vital Signs: Temp Pulse Pulse Pulse Resp BP Pulse Ox 06/26/19 10:50 97.5 F L 69 16 130/79 95 06/26/19 10:35 97.5 F L 71 15 119/67 94 06/26/19 10:25 68 19 118/74 93 06/26/19 10:16 97.5 F L 73 14 121/74 93 06/26/19 07:02 98.4 F 72 18 134/90 95 Pain Intensity Left Knee: Pain Intensity: 0 Transfer of Care Handoff Completed per policy Notes Mental Status: alert / awake / arousable and participated in evaluation Patient Amnestic to Procedure: Yes Nausea / Vomiting: adequately controlled Pain: adequately controlled Airway Patency, RR, SpO2: stable & adequate BP & HR: stable & adequate Hydration State: stable & adequate Neuraxial Anesthesia: was administered and sensory block is resolving Anesthetic Complications: no major complications apparent and Pt Satisfied with anesthetic care
[2019-06-26] MEDS ORDERED: [UNRECOGNIZED DRUG - OTHER] SCH (12:00)
[2019-06-26] MEDS: SODIUM CHLORIDE 0.9% 1000ML 1,000 ML IV SCH ×2 (12:13→22:03)
[2019-06-26] MEDS: hydroCHLOROthiazide 25 MG TAB PO SCH (13:03)
[2019-06-26] MEDS: ACETAMINOPHEN 500 MG TAB PO SCH ×3 (13:05→21:33)
[2019-06-26] MEDS ORDERED: VANCOMYCIN HCL 1,500 MG in SODIUM CHLORIDE 0.9% 500 ML IV SCH (19:00)
[2019-06-26] MEDS: ASPIRIN 81 MG ECTAB PO SCH (20:43)
[2019-06-26] MEDS: AMLODIPINE BESYLATE 5 MG TAB PO SCH (20:43)
[2019-06-26] MEDS: ENALAPRIL MALEATE 10 MG TAB PO SCH (20:45)
[2019-06-26] MEDS: VITAMIN B COMPLEX TAB PO SCH (20:45)
[2019-06-26] MEDS ORDERED: CeleBREX 200 MG CAP PO SCH (21:00)
[2019-06-26] MEDS ORDERED: NON-FORMULARY MEDICATION (Amlodipine-Benazepril 1 CAP) PO SCH (21:00)
[2019-06-26] MEDS ORDERED: SENNA 8.6 MG TAB PO SCH (21:00)
[2019-06-26] MEDS ORDERED: DOCUSATE SODIUM 100 MG CAP PO SCH (21:00)
[2019-06-26] MEDS ORDERED: NON-FORMULARY MEDICATION (Potassium 1 EA) PO SCH (21:00)
[2019-06-27 05:12] LABS: Hematocrit (blood only) 32.6 % (42-52); Hemoglobin 11.3 g/dL (14.0-18.0); Mean Corpuscular Hemoglobin 30.1 pg (25-34); Mean Corpuscular Hgb Conc 34.7 g/dL (32-36); Mean Corpuscular Volume 86.7 fL (80-100); Mean Platelet Volume 9.8 fL (7.4-10.4); Platelet Count 203 K/uL (130-400); RDW Standard Deviation 41.7 fL (36.4-46.3); Red Blood Count 3.76 M/uL (4.7-6.1)
[2019-06-27] MEDS: ACETAMINOPHEN 500 MG TAB PO SCH ×2 (05:33→13:32)
[2019-06-27 05:53] LABS: Calcium 8.4 mg/dl (8.5-10.1); Creatinine Clr Calc Pharmacy 96.8 ml/min; Est GFR (Non-African American) 77.7; Potassium 3.1 mmol/L (3.5-5.1)
--- NOTE | 2019-06-27 07:16 | Orthopedic Progress Note ---
Date of Service June 27, 2019 Assessment & Plan (1) Status post left knee replacement: POD#1 Left TKA -PT/OT -Pain management -DVT prophylaxis-ASA 81mg BID -D/C planning-plan on discharge home likely today as long as PT goes well. Subjective Patient is POD#1 left TKA. Doing well, minimal pain controlled with PO medications. No complaints currently. Denies chest pain, sob, dizziness, light headedness, n/v/d. Review of Systems Review of Systems: All systems reviewed & are unremarkable except as noted in HPI & below Physical Exam Physical Exam: Left knee dressing is c/d/i, hemovac and Marleny in place. No calf tenderness, toes mobile. Good dorsiflexion. Distally n/v status and sensation intact. Results & Data Vital Signs (Past 12 Hours) Vital Signs Temp Pulse Pulse Resp BP Pulse Ox 06/27/19 07:14 36.6 C 76 18 144/88 H 92 06/27/19 03:05 37.1 C 89 16 130/77 92 06/26/19 23:25 37.1 C 97 H 16 131/78 92 06/26/19 19:24 36.6 C 92 H 16 147/82 H 94 Laboratory Results Lab Results 05/29/19 05/29/19 05/29/19 Range/Units 12:40 12:40 12:40 WBC 6.24 (4.8-10.8) K/uL RBC 4.81 (4.7-6.1) M/uL Hgb 15.0 (14.0-18.0) g/dL Hct 42.1 (42-52) % MCV 87.5 (80-100) fL MCH 31.2 (25-34) pg MCHC 35.6 (32-36) g/dL RDW Std Deviation 43.1 (36.4-46.3) fL RDW Coeff of Alex 13.4 (11.5-14.5) % Plt Count 288 (130-400) K/uL MPV 10.5 H (7.4-10.4) fL Immature Gran % (Auto) 0.2 % Neut % (Auto) 58.3 % Lymph % (Auto) 33.2 % [place] % (Auto) 5.4 % Eos % (Auto) 2.6 % Baso % (Auto) 0.3 % Immature Gran # (Auto) 0.01 (0.00-0.02) K/uL Neut # (Auto) 3.64 (1.4-6.5) K/uL Lymph # (Auto) 2.07 (1.2-3.4) K/uL [place] # (Auto) 0.34 (0.11-0.59) K/uL Eos # (Auto) 0.16 (0-0.5) K/uL Baso # (Auto) 0.02 (0-0.2) K/uL PT 10.1 (9.0-12.0) Seconds INR 1.0 (0.9-1.1) APTT 27.1 (21.0-31.0) Seconds PTT Ratio 1.0 Sodium (136-145) mmol/L Potassium (3.5-5.1) mmol/L Chloride (98-107) mmol/L Carbon Dioxide (21-32) mmol/L Anion Gap (3-11) BUN (7-18) mg/dl Creatinine (0.6-1.4) mg/dl Est Cr Clr Drug Dosing ml/min Est GFR ( Amer) Est GFR (Non-Af Amer) BUN/Creatinine Ratio (10-20) Glucose (70-99) mg/dl Estimat Average Glucose mg/dl Hemoglobin A1c (4.5-5.6) % Calcium (8.5-10.1) mg/dl Albumin 3.8 (3.4-5.0) gm/dl Urine Color Urine Appearance (Clear) Urine pH (4.5-7.5) Ur Specific Hewitt (1.000-1.030) Urine Protein (Negative) Urine Glucose (UA) (Negative) Urine Ketones (Negative) Urine Blood (Negative) Urine Nitrite (Negative) Urine Bilirubin (Negative) Urine Urobilinogen (Negative) Ur Leukocyte Esterase (Negative) Urine WBC (Auto) (0-5) /hpf Urine RBC (Auto) (0-4) /hpf U Hyaline Cast (Auto) (0-5) /lpf U Epithel Cells (Auto) (0-5) /lpf Urine Bacteria (Auto) (Negative) Blood Type Antibody Screen 05/29/19 05/29/19 05/29/19 Range/Units 12:40 12:40 12:40 WBC (4.8-10.8) K/uL RBC (4.7-6.1) M/uL Hgb (14.0-18.0) g/dL Hct (42-52) % MCV (80-100) fL MCH (25-34) pg MCHC (32-36) g/dL RDW Std Deviation (36.4-46.3) fL RDW Coeff of Alex (11.5-14.5) % Plt Count (130-400) K/uL MPV (7.4-10.4) fL Immature Gran % (Auto) % Neut % (Auto) % Lymph % (Auto) % [place] % (Auto) % Eos % (Auto) % Baso % (Auto) % Immature Gran # (Auto) (0.00-0.02) K/uL Neut # (Auto) (1.4-6.5) K/uL Lymph # (Auto) (1.2-3.4) K/uL [place] # (Auto) (0.11-0.59) K/uL Eos # (Auto) (0-0.5) K/uL Baso # (Auto) (0-0.2) K/uL PT (9.0-12.0) Seconds INR (0.9-1.1) APTT (21.0-31.0) Seconds PTT Ratio Sodium (136-145) mmol/L Potassium (3.5-5.1) mmol/L Chloride (98-107) mmol/L Carbon Dioxide (21-32) mmol/L Anion Gap (3-11) BUN (7-18) mg/dl Creatinine (0.6-1.4) mg/dl Est Cr Clr Drug Dosing ml/min Est GFR ( Amer) Est GFR (Non-Af Amer) BUN/Creatinine Ratio (10-20) Glucose (70-99) mg/dl Estimat Average Glucose 114 mg/dl Hemoglobin A1c 5.6 (4.5-5.6) % Calcium (8.5-10.1) mg/dl Albumin (3.4-5.0) gm/dl Urine Color Dark Yellow Urine Appearance Cloudy A (Clear) Urine pH 7.5 (4.5-7.5) Ur Specific Hewitt 1.016 (1.000-1.030) Urine Protein Negative (Negative) Urine Glucose (UA) Negative (Negative) Urine Ketones Negative (Negative) Urine Blood Negative (Negative) Urine Nitrite Negative (Negative) Urine Bilirubin Negative (Negative) Urine Urobilinogen Negative (Negative) Ur Leukocyte Esterase Negative (Negative) Urine WBC (Auto) 1-5 (0-5) /hpf Urine RBC (Auto) 0-4 (0-4) /hpf U Hyaline Cast (Auto) 0 (0-5) /lpf U Epithel Cells (Auto) 0-5 (0-5) /lpf Urine Bacteria (Auto) Negative (Negative) Blood Type O Positive Antibody Screen NEGATIVE 06/27/19 06/27/19 Range/Units 04:47 04:47 WBC 14.70 H (4.8-10.8) K/uL RBC 3.76 L (4.7-6.1) M/uL Hgb 11.3 L (14.0-18.0) g/dL Hct 32.6 L (42-52) % MCV 86.7 (80-100) fL MCH 30.1 (25-34) pg MCHC 34.7 (32-36) g/dL RDW Std Deviation 41.7 (36.4-46.3) fL RDW Coeff of Alex 13.0 (11.5-14.5) % Plt Count 203 (130-400) K/uL MPV 9.8 (7.4-10.4) fL Immature Gran % (Auto) % Neut % (Auto) % Lymph % (Auto) % [place] % (Auto) % Eos % (Auto) % Baso % (Auto) % Immature Gran # (Auto) (0.00-0.02) K/uL Neut # (Auto) (1.4-6.5) K/uL Lymph # (Auto) (1.2-3.4) K/uL [place] # (Auto) (0.11-0.59) K/uL Eos # (Auto) (0-0.5) K/uL Baso # (Auto) (0-0.2) K/uL PT (9.0-12.0) Seconds INR (0.9-1.1) APTT (21.0-31.0) Seconds PTT Ratio Sodium 140 (136-145) mmol/L Potassium 3.1 L (3.5-5.1) mmol/L Chloride 106 (98-107) mmol/L Carbon Dioxide 27 (21-32) mmol/L Anion Gap 7.0 (3-11) BUN 19 H (7-18) mg/dl Creatinine 1.04 (0.6-1.4) mg/dl Est Cr Clr Drug Dosing 96.8 ml/min Est GFR ( Amer) 90.0 Est GFR (Non-Af Amer) 77.7 BUN/Creatinine Ratio 18.0 (10-20) Glucose 130 H (70-99) mg/dl Estimat Average Glucose mg/dl Hemoglobin A1c (4.5-5.6) % Calcium 8.4 L (8.5-10.1) mg/dl Albumin (3.4-5.0) gm/dl Urine Color Urine Appearance (Clear) Urine pH (4.5-7.5) Ur Specific Hewitt (1.000-1.030) Urine Protein (Negative) Urine Glucose (UA) (Negative) Urine Ketones (Negative) Urine Blood (Negative) Urine Nitrite (Negative) Urine Bilirubin (Negative) Urine Urobilinogen (Negative) Ur Leukocyte Esterase (Negative) Urine WBC (Auto) (0-5) /hpf Urine RBC (Auto) (0-4) /hpf U Hyaline Cast (Auto) (0-5) /lpf U Epithel Cells (Auto) (0-5) /lpf Urine Bacteria (Auto) (Negative) Blood Type Antibody Screen
[2019-06-27] MEDS: ASPIRIN 81 MG ECTAB PO SCH (07:41)
[2019-06-27] MEDS: ENALAPRIL MALEATE 10 MG TAB PO SCH (07:41)
[2019-06-27] MEDS: hydroCHLOROthiazide 25 MG TAB PO SCH (07:41)
[2019-06-27] MEDS: AMLODIPINE BESYLATE 5 MG TAB PO SCH (07:42)
[2019-06-27] MEDS: VITAMIN B COMPLEX TAB PO SCH (07:43)
[2019-06-27] MEDS ORDERED: DESVENLAFAXINE SUCCINATE 50 MG PO SCH (09:00)
[2019-06-27] MEDS ORDERED: MULTIVITAMIN TAB PO SCH (09:00)
[2019-06-27] MEDS ORDERED: VITAMIN D PO SCH (09:00)
[2019-06-27] MEDS ORDERED: POTASSIUM CHLORIDE 20 MEQ TABCR PO STA ×2 (09:05→13:51)
--- NOTE | 2019-06-27 09:24 | Hospitalist Consultation ---
Date of Consultation June 27, 2019 Assessment & Plan (1) Hypokalemia: This is a 59yo M with a PMH of HTN, hypokalemia, BPH, HUDSON and other medical problems with is POD#1 s/p L TKA by Dr. Beth. -Hypokalemia today of 3.1 in setting of chronic condition, missed home med supplementation -Given 40mEq KCL orally. Will repeat BMP at 1300 -Asymptomatic -Instructed to resume home dose 20 mEq KCl twice daily upon discharge (2) Status post left knee replacement: POD#1 s/p L TKA by Dr. Beth -Per ortho for pain control, wound care, anticoagulation and activities -Continue incentive spirometry, PT/OT (3) HTN (hypertension): Slightly elevated at 144/88 in setting of exertion from PT -Continue home amlodipine-benazepril, hctz DVT Ppx: 81mg BID PCP: Usha Dispo: Per primary service Patient seen in collaboration with Dr. Ray. Please see addendum. Thank you for this consultation. We will follow the patient with you during their hospital stay. You can reach a member of the [facility] Hospitalist Team 12/03 via pager @ [phone]. Supervising Physician Co-Signing Physician Notes Attending addendum; The patient was seen and examined in medical floor He is a status post left knee arthroplasty He has been getting physical therapy and is about to go home today Noted to have hypokalemia and medicine was consulted On examination No apparent distress at rest Denies any symptoms He remains hemodynamically stable Chest-clear to auscultate bilaterally Heart-S1-S2 regular, no murmur appreciated Abdomen-benign Extremities-negative for any edema His labs and imaging studies reviewed has hypokalemia with potassium 3.1 And that was supplemented We will get repeat PRP at around 1 PM Medically stable to be discharged Agree with assessment plan as outlined above by VICTORIANO [address] History of Present Illness Reason for Consultation: hypokalemia Attending Physician: Isaiah Beth MD History of Present Illness This is a 59yo M with a PMH of HTN, hypokalemia, BPH, HUDSON and other medical problems with is POD#1 s/p L TKA by Dr. Beth. Patient is feeling well today with minimal surgical site pain. Denies distal numbness or paresthesias to left lower extremity. Participating in PT without issue. Tolerating diet without nausea, vomiting or diarrhea. Denies fever, chills, lightheadedness, visual changes, chest pain, shortness of breath or palpitations. Has history of hypokalemia with home medications including 20 mEq of potassium chloride twice a day. Patient has not received that during admission and potassium is 3.1 today. We were consulted by orthopedic service for further management of hypokalemia. Allergies Allergy/AdvReac Type Severity Reaction Status Date / Time bupropion Allergy Unknown HIVES Verified 06/26/19 07:12 Penicillins Allergy Unknown CHILDHOOD; Verified 06/26/19 07:12 UNKNOWN REACTION Sulfa (Sulfonamide Allergy Unknown SYSTEMIC Verified 06/26/19 07:12 Antibiotics) SWELLING lactose AdvReac Unknown GI UPSET Verified 06/26/19 07:12 sulfite AdvReac Unknown HEADACHE/DI Verified 06/26/19 07:12 ARRHEA ANTIBIOTIC AdvReac Unknown FLU LIKE Uncoded 05/29/19 12:50 SYMPTOMS, SEE NOTES BELOW Home Medications Home Medications Medication Instructions Recorded Confirmed Type B-complex with vitamin C [Super B 1 tab PO BID 05/21/19 05/21/19 History Complex-Vitamin C] amlodipine-benazepril 1 cap PO BID 05/21/19 05/21/19 History aspirin [Aspir-81] 81 mg PO QAM 05/21/19 05/21/19 History desvenlafaxine succinate [Pristiq] 50 mg PO QAM 05/21/19 05/21/19 History hgkkempw-[id number]-vit K-lycop 1 tab PO DAILY 05/21/19 05/21/19 History [One-A-Day Men's Multivitamin] oxycodone 5 mg PO Q4H PRN #30 tab MDD 6 06/26/19 06/27/19 Rx acetaminophen [Tylenol Extra 1,000 mg PO Q8 #60 tab 06/27/19 Rx Strength] cefadroxil 500 mg PO BID #60 cap 06/27/19 Rx hydrochlorothiazide 12.5 mg PO DAILY 06/27/19 06/27/19 History potassium chloride 20 meq PO BID 06/27/19 06/27/19 History Patient History Medical History Anxiety (Chronic) Hypertension (Chronic) Sleep apnea (Chronic) CPAP Surgical History History of arthroscopic knee surgery (Chronic) RIGHT History of colonoscopy (Chronic) History of foot surgery (Chronic) LEFT History of total right knee replacement (Chronic) post-op infection s/p surgery/abx via PICC line (was on doxy x 8 months)- surgeon aware Family History Father Family history of aortic aneurysm Grandfather Family history of aortic aneurysm Social History Preferred Language: Mohawk Communication Ability: Effective Cadd Technician Required: No Beliefs That Will Affect Care: None marital status: Current Living Situation: Spouse Other Information That Helps Us Care for You: No Feels Safe at Home: Yes Smoking Status: Never smoker Do You Dip or Chew Tobacco: No ; Hx Alcohol Use: Yes Alcohol type: wine and hard liquor Hx Substance Use: No Review of Systems Review of Systems: At least ten systems reviewed and negative except as noted in the HPI. Physical Exam Physical Exam: General Appearance: WD/WN, vitals as above, NAD, sitting up in bedside chair, participating in PT, pleasant, conversing easily Head: normocephalic, atraumatic Eyes: normal inspection, PERRL, conjunctivae normal, anicteric sclerae ENT: external ear and nose normal, oropharynx normal Neck: trachea midline, no thyromegaly normal visual inspection Respiratory: normal respiratory effort, lungs clear to auscultation, no wheeze, rales, rhonchi. Normal insp/exp effort, no accessory muscle use Cardiovascular: regular rate, rhythm, no murmur appreciated, normal peripheral pulses Chest: normal inspection of chest Abdomen/GI: normal bowel sounds, soft, nontender, no hepatosplenomegaly Extremities/Musculoskelatal: no cyanosis or clubbing, extremities motor strength 5/5. + L knee with surgical bandage in place. Clean, dry, intact Neurologic: PERRL, EOMI, CN's II-XI intact bilaterally and moves all extremities Psychiatric: A+Ox3, euthymic affect Skin: no rashes, normal color, warm/dry Results & Data Vital Signs (Past 12 Hours) Vital Signs Temp Pulse Resp BP Pulse Ox 06/27/19 07:14 36.6 C 76 18 144/88 H 92 06/27/19 03:05 37.1 C 89 16 130/77 92 06/26/19 23:25 37.1 C 97 H 16 131/78 92 Laboratory Results Short CBC 06/27/19 Range/Units 04:47 WBC 14.70 H (4.8-10.8) K/uL Hgb 11.3 L (14.0-18.0) g/dL Hct 32.6 L (42-52) % Plt Count 203 (130-400) K/uL BMP 06/27/19 04:47 Sodium 140 Potassium 3.1 L Chloride 106 Carbon Dioxide 27 BUN 19 H Creatinine 1.04 Glucose 130 H Calcium 8.4 L
[2019-06-27 13:16] LABS: Est GFR (African American) 85.1; Est GFR (Non-African American) 73.4; Potassium 3.2 mmol/L (3.5-5.1)
[2019-06-27 13:17] LABS: BUN Creatinine Ratio 12.9 (10-20); Calcium 8.9 mg/dl (8.5-10.1); Creatinine Clr Calc Pharmacy 92.4 ml/min
[2019-06-27] MEDS ORDERED: POTASSIUM CHLORIDE 20 MEQ TABCR PO SCH (21:00)
--- NOTE | 2019-06-29 12:53 | Discharge Summary ---
Date of Service June 29, 2019 Admission HPI Per Admitting Provider Patient is a 59 year old male with PMHx significant for HTN, HUDSON, and anxiety who presents with chronic left knee pain. Previously has had right knee replacement with good relief of his right knee pain. He has failed conservative measures including injections and antiinflammatories. Pain is affecting his daily life. He would like to proceed with left knee replacement. Patient denies headaches, sweats, fevers, chills, double vision, blurred vision, cough, sore throat, dysphagia, chest pain, sob, wheezing, n/v/d/c, numbness, tingling, fatigue, urinary symptoms, mood disorders. ROS positive for left knee pain and stiffness. Admission Exam Per Admitting Provider Constitutional: well developed and well nourished; no acute distress Eyes: PERRL, conjunctivae normal, anicteric sclerae ENMT: external ear and nose normal, oropharynx normal Neck: trachea midline, no thyromegaly Respiratory: normal respiratory effort, lungs clear to auscultation Cardiovascular: RRR, no murmur, no edema Musculoskeletal: Left knee-Mild varus deformity, tenderness medial joint line. Mild effusion with ROM 0-130. Crepitus with ROM. Stable to valgus and varus stress Skin: no rashes, warm and dry Neurologic: patellar DTR's 2+ bilat, sensation intact Psychiatric: A+Ox3, euthymic affect Principal Diagnosis Left knee osteoarthritis, hypokalemia Discharge Exam Constitutional well developed and well nourished; no acute distress Eyes PERRL, conjunctivae normal, anicteric sclerae ENMT external ear and nose normal, oropharynx normal Neck trachea midline, no thyromegaly Respiratory normal respiratory effort, lungs clear to auscultation Cardiovascular RRR, no murmur, no edema Skin no rashes, warm and dry Neurologic patellar DTR's 2+ bilat, sensation intact Psychiatric A+Ox3, euthymic affect Discharge Data Allergies Allergy/AdvReac Type Severity Reaction Status Date / Time bupropion Allergy Unknown HIVES Verified 06/26/19 07:12 Penicillins Allergy Unknown CHILDHOOD; Verified 06/26/19 07:12 UNKNOWN REACTION Sulfa (Sulfonamide Allergy Unknown SYSTEMIC Verified 06/26/19 07:12 Antibiotics) SWELLING lactose AdvReac Unknown GI UPSET Verified 06/26/19 07:12 sulfite AdvReac Unknown HEADACHE/DI Verified 06/26/19 07:12 ARRHEA ANTIBIOTIC AdvReac Unknown FLU LIKE Uncoded 05/29/19 12:50 SYMPTOMS, SEE NOTES BELOW Consultations 06/26/19 11:02 Consult Case Management - Discharge Planning Routine 06/27/19 08:35 Consult Medical [Consult Internal Medicine] Routine Procedures Performed Operation Date: 06/26/19 08:15 Actual Procedures p Left Total Knee Arthroplasty(Left) - Isaiah Beth MD Ordered Studies 06/26/19 05:00 US - OR guided needle placemen Routine Hospital Course (1) Status post left knee replacement: Patient presented for same day admission following left total knee arthroplasty on 06/26/19. He tolerated procedure well. Post-operatively, his activity was progressed and well tolerated. They participated in PT with ambulation distance of 300 feet. ROM of operative knee reached 95 degrees. Labs remained stable- lowest hemoglobin recorded: 11.3. Dr. Pedro Ray of medical service was consulted for medical management during admission due to potassium level of 3.1 on post op labs. He was administered Potassiums and levels were 3.2 later that afternoon with plans on continuing outpatient potassium. Pain controlled on oral medications. Please refer to daily progress notes and PT notes for complete details. After exam on 06/26/19 and cleared by medicine, patient was felt to be stable for discharge home with plans on home health PT. Patient will f/u in the office in about 2 weeks for further evaluation including x-rays and incision check, sooner if having any issues or concerns. Lab Results 05/29/19 05/29/19 05/29/19 Range/Units 12:40 12:40 12:40 WBC 6.24 (4.8-10.8) K/uL RBC 4.81 (4.7-6.1) M/uL Hgb 15.0 (14.0-18.0) g/dL Hct 42.1 (42-52) % MCV 87.5 (80-100) fL MCH 31.2 (25-34) pg MCHC 35.6 (32-36) g/dL RDW Std Deviation 43.1 (36.4-46.3) fL RDW Coeff of Alex 13.4 (11.5-14.5) % Plt Count 288 (130-400) K/uL MPV 10.5 H (7.4-10.4) fL Immature Gran % (Auto) 0.2 % Neut % (Auto) 58.3 % Lymph % (Auto) 33.2 % [place] % (Auto) 5.4 % Eos % (Auto) 2.6 % Baso % (Auto) 0.3 % Immature Gran # (Auto) 0.01 (0.00-0.02) K/uL Neut # (Auto) 3.64 (1.4-6.5) K/uL Lymph # (Auto) 2.07 (1.2-3.4) K/uL [place] # (Auto) 0.34 (0.11-0.59) K/uL Eos # (Auto) 0.16 (0-0.5) K/uL Baso # (Auto) 0.02 (0-0.2) K/uL PT 10.1 (9.0-12.0) Seconds INR 1.0 (0.9-1.1) APTT 27.1 (21.0-31.0) Seconds PTT Ratio 1.0 Sodium (136-145) mmol/L Potassium (3.5-5.1) mmol/L Chloride (98-107) mmol/L Carbon Dioxide (21-32) mmol/L Anion Gap (3-11) BUN (7-18) mg/dl Creatinine (0.6-1.4) mg/dl Est Cr Clr Drug Dosing ml/min Est GFR ( Amer) Est GFR (Non-Af Amer) BUN/Creatinine Ratio (10-20) Glucose (70-99) mg/dl Estimat Average Glucose mg/dl Hemoglobin A1c (4.5-5.6) % Calcium (8.5-10.1) mg/dl Albumin 3.8 (3.4-5.0) gm/dl Urine Color Urine Appearance (Clear) Urine pH (4.5-7.5) Ur Specific [place] (1.000-1.030) Urine Protein (Negative) Urine Glucose (UA) (Negative) Urine Ketones (Negative) Urine Blood (Negative) Urine Nitrite (Negative) Urine Bilirubin (Negative) Urine Urobilinogen (Negative) Ur Leukocyte Esterase (Negative) Urine WBC (Auto) (0-5) /hpf Urine RBC (Auto) (0-4) /hpf U Hyaline Cast (Auto) (0-5) /lpf U Epithel Cells (Auto) (0-5) /lpf Urine Bacteria (Auto) (Negative) Blood Type Antibody Screen 05/29/19 05/29/19 05/29/19 Range/Units 12:40 12:40 12:40 WBC (4.8-10.8) K/uL RBC (4.7-6.1) M/uL Hgb (14.0-18.0) g/dL Hct (42-52) % MCV (80-100) fL MCH (25-34) pg MCHC (32-36) g/dL RDW Std Deviation (36.4-46.3) fL RDW Coeff of Alex (11.5-14.5) % Plt Count (130-400) K/uL MPV (7.4-10.4) fL Immature Gran % (Auto) % Neut % (Auto) % Lymph % (Auto) % [place] % (Auto) % Eos % (Auto) % Baso % (Auto) % Immature Gran # (Auto) (0.00-0.02) K/uL Neut # (Auto) (1.4-6.5) K/uL Lymph # (Auto) (1.2-3.4) K/uL [place] # (Auto) (0.11-0.59) K/uL Eos # (Auto) (0-0.5) K/uL Baso # (Auto) (0-0.2) K/uL PT (9.0-12.0) Seconds INR (0.9-1.1) APTT (21.0-31.0) Seconds PTT Ratio Sodium (136-145) mmol/L Potassium (3.5-5.1) mmol/L Chloride (98-107) mmol/L Carbon Dioxide (21-32) mmol/L Anion Gap (3-11) BUN (7-18) mg/dl Creatinine (0.6-1.4) mg/dl Est Cr Clr Drug Dosing ml/min Est GFR ( Amer) Est GFR (Non-Af Amer) BUN/Creatinine Ratio (10-20) Glucose (70-99) mg/dl Estimat Average Glucose 114 mg/dl Hemoglobin A1c 5.6 (4.5-5.6) % Calcium (8.5-10.1) mg/dl Albumin (3.4-5.0) gm/dl Urine Color Dark Yellow Urine Appearance Cloudy A (Clear) Urine pH 7.5 (4.5-7.5) Ur Specific [place] 1.016 (1.000-1.030) Urine Protein Negative (Negative) Urine Glucose (UA) Negative (Negative) Urine Ketones Negative (Negative) Urine Blood Negative (Negative) Urine Nitrite Negative (Negative) Urine Bilirubin Negative (Negative) Urine Urobilinogen Negative (Negative) Ur Leukocyte Esterase Negative (Negative) Urine WBC (Auto) 1-5 (0-5) /hpf Urine RBC (Auto) 0-4 (0-4) /hpf U Hyaline Cast (Auto) 0 (0-5) /lpf U Epithel Cells (Auto) 0-5 (0-5) /lpf Urine Bacteria (Auto) Negative (Negative) Blood Type O Positive Antibody Screen NEGATIVE 06/27/19 06/27/19 06/27/19 Range/Units 04:47 04:47 12:48 WBC 14.70 H (4.8-10.8) K/uL RBC 3.76 L (4.7-6.1) M/uL Hgb 11.3 L (14.0-18.0) g/dL Hct 32.6 L (42-52) % MCV 86.7 (80-100) fL MCH 30.1 (25-34) pg MCHC 34.7 (32-36) g/dL RDW Std Deviation 41.7 (36.4-46.3) fL RDW Coeff of Alex 13.0 (11.5-14.5) % Plt Count 203 (130-400) K/uL MPV 9.8 (7.4-10.4) fL Immature Gran % (Auto) % Neut % (Auto) % Lymph % (Auto) % [place] % (Auto) % Eos % (Auto) % Baso % (Auto) % Immature Gran # (Auto) (0.00-0.02) K/uL Neut # (Auto) (1.4-6.5) K/uL Lymph # (Auto) (1.2-3.4) K/uL [place] # (Auto) (0.11-0.59) K/uL Eos # (Auto) (0-0.5) K/uL Baso # (Auto) (0-0.2) K/uL PT (9.0-12.0) Seconds INR (0.9-1.1) APTT (21.0-31.0) Seconds PTT Ratio Sodium 140 138 (136-145) mmol/L Potassium 3.1 L 3.2 L (3.5-5.1) mmol/L Chloride 106 103 (98-107) mmol/L Carbon Dioxide 27 28 (21-32) mmol/L Anion Gap 7.0 7.0 (3-11) BUN 19 H 14 (7-18) mg/dl Creatinine 1.04 1.09 (0.6-1.4) mg/dl Est Cr Clr Drug Dosing 96.8 92.4 ml/min Est GFR ( Amer) 90.0 85.1 Est GFR (Non-Af Amer) 77.7 73.4 BUN/Creatinine Ratio 18.0 12.9 (10-20) Glucose 130 H 111 H (70-99) mg/dl Estimat Average Glucose mg/dl Hemoglobin A1c (4.5-5.6) % Calcium 8.4 L 8.9 (8.5-10.1) mg/dl Albumin (3.4-5.0) gm/dl Urine Color Urine Appearance (Clear) Urine pH (4.5-7.5) Ur Specific [place] (1.000-1.030) Urine Protein (Negative) Urine Glucose (UA) (Negative) Urine Ketones (Negative) Urine Blood (Negative) Urine Nitrite (Negative) Urine Bilirubin (Negative) Urine Urobilinogen (Negative) Ur Leukocyte Esterase (Negative) Urine WBC (Auto) (0-5) /hpf Urine RBC (Auto) (0-4) /hpf U Hyaline Cast (Auto) (0-5) /lpf U Epithel Cells (Auto) (0-5) /lpf Urine Bacteria (Auto) (Negative) Blood Type Antibody Screen Total Time Total Time Spent Total Time Spent (In Minutes): 20 Discharge Plan Discharge Items Patient Disposition: Home - Home Health Services Reason For Visit: LEFT KNEE OSTEOARTHRITIS Discharge Diagnosis: Left knee osteoarthritis Activity: Per Instructions section Non-emergency contact: Surgeon Call non-emergency contact if: you have any medication questions, your pain is not controlled, your pain is concerning for you, you have a fever, your temperature is above 101, your wound has increased redness and your wound has increased drainage Follow-up/Referrals: Isaiah Kerr MD [Primary Care Provider] - Diet: Regular Addtl Attending Provider Instructions: ACTIVITY RECOMMENDATIONS: SELF CARE INSTRUCTIONS AFTER TOTAL KNEE REPLACEMENT A. You may need to continue a physical therapy program after discharge from the hospital. There are several options available to you. Your doctor will assist you in selecting the best one for you. 1. An out-patient facility 2 to 3 times a week for therapy or home therapy. 2. Continue working on all exercises taught to you in the hospital. Your goals should be to increase bending of your knee to 90 degrees and beyond and to fully straighten your knee. B. You may progress at your own pace from walking with a walker or crutches to a cane; then to no assistive devices. C. Make walking a part of your daily routine. Be up as much as comfortable with rest periods throughout the day. Rest with leg elevation is very important. Use the ice wrap frequently for the first 3-4 weeks. D. There are no restrictions on activities. You may ride in a car, shop, participate in postpartum nurse and all social activities. E. Wear the long elastic stockings (DARCI hose) 20 hours a day for 2 weeks after surgery. They can be removed several times a day for laundering and for a bath. F. You may shower, no tub baths until cleared by your doctor. SPECIAL CARE INSTRUCTIONS: VERY IMPORTANT TO READ AND REVIEW A. There are a few signs you need to watch for after you are home. Call [facility] if you notice any of the followin. Increased severe knee pain. Some pain is expected especially when you exercise. 2. Increased swelling in your leg or knee; pain or swelling of the calf muscle in either lower leg. 3. Any fluid drainage from the incision. 4. Shortness of breath or chest pain. B. Please call [facility] at if you have any concerns or questions about your operation or recovery. The doctor or his nurse will return your call promptly. C. You must take antibiotics before dental work, bladder, bowel or other surgery. Your doctor will provide you with a permanent care to carry describing this precaution. IMPORTANT: * REMEMBER TO TAKE ASPIRIN, 81 MG, TWICE DAILY FOR 4 WEEKS UNLESS OTHERWISE DIRECTED. THIS IS YOUR BLOOD THINNER. * HIGH RISK PATIENTS MAY BE PRESCRIBED A STRONGER BLOOD THINNER. THIS WILL BE PROVIDED AT DISCHARGE. * CALL IF INCREASED PAIN, REDNESS, DRAINAGE OR FEVER GREATER THAT 101. * WEAR DARCI HOSE 20 HOURS PER DAY FOR 2 WEEKS. * This is a large suction dressing covering your incision. This will help pull any excess drainage from the wound and allow your incision to heal properly. You may shower with this if you can keep the unit outside of the shower. If any bleeding or leakage is noted please call your doctor's office. This will remain on your incision for 7 days and then should be removed. This can be done yourself or by the home nursing staff if applicable. The entire unit is disposable once removed. Once removed, keep incision clean and dry. If redness or drainage is noted, please call your surgeon. FOLLOW UP VISIT: If appointment is not already scheduled: Please call [facility] to make a follow-up appointment for 2 weeks after your surgery at . Pending Studies at Discharge: No Stand-Alone Forms: My [facility] Kidzloop, Opioid Pain Management, Smoking Cessation Medications and DC Order Prescriptions: New oxycodone 5 mg tablet 5 mg PO Q4H MDD 6 PRN (Reason: pain) Qty: 30 RF: 0 acetaminophen [Tylenol Extra Strength] 500 mg Tablet 1,000 mg PO Q8 Qty: 60 RF: 0 cefadroxil 500 mg capsule 500 mg PO BID Qty: 60 RF: 0 Continued amlodipine-benazepril 5-20 mg Capsule 1 cap PO BID RF: 0 B-complex with vitamin C [Super B Complex-Vitamin C] Tablet 1 tab PO BID RF: 0 desvenlafaxine succinate [Pristiq] 50 mg Tablet Extended Release 24 Hr 50 mg PO QAM RF: 0 One-A-Day Men's Multivitamin 400-20-300 mcg Tablet 1 tab PO DAILY RF: 0 aspirin [Aspir-81] 81 mg Tablet,Delayed Release (Dr/Ec) 81 mg PO QAM RF: 0 hydrochlorothiazide 12.5 mg capsule 12.5 mg PO DAILY RF: 0 potassium chloride 20 mEq Tablet Extended Release 20 meq PO BID RF: 0 Discharge Orders: Discharge Order (Routine); Ordered 06/27/19 Ordered By: Dwayne Levi/Other Patient Handouts: Replacement Knee Total, DVT Prevent Admission Data Admit Date/Time: 06/26/19 10:19 Attending Provider: Isaiah Beth Admit Provider: Isaiah Beth Primary Care Provider: Isaiah Kerr Other Providers: Lori,Home Health ; Dwayne Kennedy Other Interventions: Discharge Summary Assessment (RN) Last Done: 06/27/19 09:10 DC Date/Time DO NOT enter until pt leaves facility: 06/27/19 16:45
== END 2019-06-27 16:45 | disposition home health service (06) | DRG 470 ==
LOC: ASU 06:40 → 3E 10:19